=== PATIENT | male | born 1960 | race Caucasian/White ===

== ENCOUNTER → 2021-02-01 09:43 | Outpatient (CLI) | payer BC, SELFPAY ==
--- NOTE | ~2021-02-01 | XR_ITS ---
EXAMINATION: XR sacroiliac joints min 3V, XR lumbar spine 2-3V EXAM DATE: 02/01/2021 10:12 INDICATION: lower lumbar pain/SI joint area pain/sciatic nerve . TECHNIQUE: Lumber spine frontal, lateral, lateral L5-S1 projections for interpretation. Sacroiliac f rontal, bilateral oblique projections. There is prior lumbar x-ray exam from 2010 for comparison. FINDINGS: There is moderate facet arthropathy at L4-5, otherwise mild lumbar facet arthropathy, with mild progression in this arthropathy compared to 2010. The vertebral bodies are aligned in the AP di mension. Vertebral body and disc heights are well-maintained. There are no acute fractures identified . Paraspinal soft tissue is unremarkable. Sacrum, sacroiliac joints, sacral arcuate lines are intact and symmetric. There are no bony erosions identified. There is mild to moderate symmetric bilateral hip primary osteoarthritis. IMPRESSION: 1. L4-5 moderate facet arthropathy, less at other levels. 2. Mild to moderate bilateral hip osteoarthritis. 3. Unremarkable sacrum. Reviewed, dictated and finalized at location A. IMPRESSION: 1. L4-5 moderate facet arthropathy, less at other levels. 2. Mild to moderate bilateral hip osteoarthritis. 3. Unremarkable sacrum.
== END ==
PROVIDERS: PCP Family Medicine; Visit Provider Physician Assistant
DX: M54.30 Sciatica, unspecified side (principal); M53.3 Sacrococcygeal disorders, not elsewhere classified; M54.5 Low back pain; M16.0 Bilateral primary osteoarthritis of hip
CPT/HCPCS: 72100; 72202

== ENCOUNTER → 2021-02-22 09:34 | Outpatient (CLI) | payer BC, SELFPAY ==
--- NOTE | ~2021-02-22 | XR_ITS ---
EXAMINATION: XR knee LT min 4V DATE: 02/22/2021 10:49 INDICATION: Left knee pain. TECHNIQUE: 4 views of left knee were obtained. COMPARISON: Left knee radiographs 07/31/2015 FINDINGS: Bone alignment is normal. No fracture. There is mild osteoarthritis of lateral and patellof emoral compartments characterized by tiny marginal osteophytes. No knee joint effusion. There is a 3 mm loose body in the intercondylar notch. IMPRESSION: 1. Mild left knee osteoarthritis. 2. Small loose body in left knee joint. Reviewed, dictated and finalized at location A.
--- NOTE | ~2021-02-22 | MR_ITS ---
EXAMINATION: MR lumbar spine wo con EXAM DATE: 02/22/2021 10:08 INDICATION: Low back pain, bilateral leg pain. Lumbar radiculopathy. TECHNIQUE: Multi-sequential, multiplanar MR images of the lumbar spine were obtained without contrast . Sagittal T1, T2, T2 fat saturation images. Axial T2 weighted images. Correlation is made to lumba r x-ray 02/01/2021. FINDINGS: The conus medullaris terminates at the T12-L1 level and has normal signal intensity and mor phology. The vertebral bodies are aligned in the AP dimension. Vertebral body and disc heights are w ell-maintained. There are no suspicious marrow signal abnormalities. Paraspinal soft tissue is unrema rkable. Level by level evaluation: T12-L1: Disc does not extend beyond the endplate margin. Facet arthropathy: None. Neural foraminal stenosis: No stenosis. Central canal stenosis: No stenosis. L1-L2: Disc does not extend beyond the endplate margin. Facet arthropathy: None. Neural foraminal stenosis: No stenosis. Central canal stenosis: No stenosis. L2-L3: Disc does not extend beyond the endplate margin. Facet arthropathy: Mild. Neural foraminal stenosis: No stenosis. Central canal stenosis: No stenosis. L3-L4: There is a minimal diffuse disc bulge. Facet arthropathy: Mild. Neural foraminal stenosis: No stenosis. Central canal stenosis: No stenosis. L4-L5: There is a mild diffuse disc bulge. Facet arthropathy: Moderate left, mild to moderate right. Mild ligamentum flavum enlargement. Neural foraminal stenosis: Mild bilateral. Central canal stenosis: Mild. L5-S1: There is a minimal diffuse disc bulge. Facet arthropathy: Moderate to severe left, mild right. Neural foraminal stenosis: No stenosis. Central canal stenosis: No stenosis. IMPRESSION: 1. Lower lumbar predominant facet arthropathy. 2. No significant stenosis. Reviewed, dictated and finalized at location A.
--- NOTE | ~2021-02-22 | XR_ITS ---
EXAMINATION: XR knee RT min 4V DATE: 02/22/2021 10:49 INDICATION: Right knee pain. TECHNIQUE: 4 views of right knee were obtained. COMPARISON: None. FINDINGS: Bone alignment is normal. No fracture. There is mild tricompartmental osteoarthritis charac terized by tiny marginal osteophytes. No knee joint effusion. IMPRESSION: 1. Mild right knee osteoarthritis. Reviewed, dictated and finalized at location A.
== END ==
PROVIDERS: PCP Family Medicine; Visit Provider Nurse Practitioner Adult Health
DX: M54.16 Radiculopathy, lumbar region (principal); M17.0 Bilateral primary osteoarthritis of knee; M23.42 Loose body in knee, left knee
CPT/HCPCS: 72148; 73564

== ENCOUNTER → 2021-07-24 09:43 | Outpatient (CLI) | payer BC, SELFPAY ==
--- NOTE | ~2021-07-24 | XR_ITS ---
XR hand RT 2V DATE: 07/24/2021 10:12 INDICATION: Right hand pain TECHNIQUE: AP and lateral views COMPARISON: None FINDINGS: There is polyarticular osteoarthritis, involving first carpometacarpal and the metacarpopha langeal joints, especially the first and second metacarpophalangeal joints, as well as some interphal angeal joints. No fracture, dislocation, periosteal reaction or bone destruction, erosive change or chondrocalcinosi s is evident. IMPRESSION: Polyarticular osteoarthritis Reviewed, dictated and finalized at location B.
== END ==
PROVIDERS: PCP Family Medicine; Visit Provider Physician Assistant
DX: M19.041 Primary osteoarthritis, right hand (principal)
CPT/HCPCS: 73120

== ENCOUNTER → 2021-11-07 09:44 | Outpatient (CLI) | payer BC, SELFPAY ==
--- NOTE | ~2021-11-07 | XR_ITS ---
EXAMINATION: XR hand LT min 3V EXAM DATE: 11/07/2021 09:59 INDICATION: Hand pain left, trigger middle finger of left hand . TECHNIQUE: Left hand frontal, lateral and oblique projections obtained and reviewed. There is no memo or study for comparison. FINDINGS: Left metacarpal bones are unremarkable. There is mild polyarticular interphalangeal, dista l interphalangeal, 1st MCP primary osteoarthritis. There are no bony erosions identified. There are no acute fractures or dislocations identified. There is no subcutaneous gas. The soft tissue is unr emarkable. There are no radiopaque foreign bodies. IMPRESSION: Left hand polyarticular osteoarthritis. Reviewed, dictated and finalized at location A. E PILOT
== END ==
PROVIDERS: PCP Physician Assistant; Visit Provider Physician Assistant
DX: M65.332 Trigger finger, left middle finger (principal); M79.642 Pain in left hand; M18.12 Unilateral primary osteoarthritis of first carpometacarpal joint, left hand; M19.042 Primary osteoarthritis, left hand
CPT/HCPCS: 73130

== ENCOUNTER 2022-01-23 10:37 | Outpatient (CLI) | payer BC, SELFPAY | END 2022-01-23 10:38 | disposition home or self-care (01) | LOC: ANHAUDIO 10:39 | PROVIDERS: PCP Physician Assistant; Visit Provider Family Medicine | DX: H91.90 Unspecified hearing loss, unspecified ear (principal) | CPT/HCPCS: 92557; 92567 ==

== ENCOUNTER → 2022-02-07 12:40 | Outpatient (CLI) | payer BC, SELFPAY ==
--- NOTE | ~2022-02-07 | CT_ITS ---
EXAMINATION: CT abdomen pelvis wo con DATE: 02/07/2022 13:00 INDICATION: Upper abdominal pain TECHNIQUE: Computed tomography (CT) of the abdomen and pelvis was performed without intravenous contr ast. The dose-length product (DLP) was 880.01 mGy-cm. Automated exposure control and iterative recons truction technique were employed. COMPARISON: 01/12/2013 FINDINGS: Minimal dependent atelectasis is present in the lung bases. The heart size is normal. The l iver is diffusely low in attenuation when compared with the spleen, consistent with hepatic steatosis . The spleen, pancreas, and adrenal glands are normal. A stone is present in the nondistended gallbla dder. The kidneys are unremarkable. No pathologically enlarged abdominal or pelvic lymph nodes are id entified. There is no free intraperitoneal gas or evidence of bowel obstruction. Prostatic calcificat ions are noted. There is a small epigastric hernia with a 6 mm neck to the right of midline which miguel ears to contain a small amount of fat or omentum. There is a fat-containing umbilical hernia. There i s mild lumbar spondylosis. IMPRESSION: 1. Small epigastric hernia with a 6 mm neck to the right of midline containing a small amount of fat or omentum. 2. Diffuse hepatic steatosis. 3. Small fat-containing umbilical hernia. Reviewed, dictated and finalized at location A.
== END ==
PROVIDERS: PCP Family Medicine; Visit Provider Family Medicine
DX: R10.11 Right upper quadrant pain (principal); K76.0 Fatty (change of) liver, not elsewhere classified; K42.9 Umbilical hernia without obstruction or gangrene
CPT/HCPCS: 74176

== ENCOUNTER 2022-04-06 12:00 | Outpatient (RCR) | payer BC, SELFPAY | END 2022-04-06 23:59 | disposition home or self-care (01) | LOC: ANHAUDIO 12:00 | PROVIDERS: Visit Provider Family Medicine | DX: Z46.1 Encounter for fitting and adjustment of hearing aid (principal) | CPT/HCPCS: 99199; V5261 ==

== ENCOUNTER 2022-05-21 08:53 | Outpatient (CLI) | payer BC, SELFPAY ==
--- NOTE | 2022-05-21 | EST_ITS ---
Patient Info Name: Alan Gavin Age: 61 years : 1960 Gender: Male Ht: 67 in Wt: 204 lbs BSA: 2.12 m2 HR: 85 bpm BP: 123 / 78 mmHg Heart Rhythm: Sinus Rhythm Exam Date: 05/21/2022 10:14 AM Exam Location: [facility] Patient Status: Outpatient Admit Date: 05/21/2022 Staff Ordering Physician: AllanWild M.D. Director Of Leadership Development: Chery Schneider RDCS Attending Provider: MatiasWild M.D. Exercise Technologist: Lesley Flores RDCS Exercise Physician: Jensen Garay MD Exam Type: CA dobutamine stress echo Study Info Indications - HASSAN Dobutamine stress echocardiogram is performed. Summary 1. Negative stress echocardiogram for ischemia by wall motion analysis. 2. Negative dobutamine stress test for ischemic ST changes by ECG criteria. 3. Blood pressure response at peak dobutamine infusion did drop and then rise significantly. ? Error/artifact at the time. 4. No dobutamine induced chest pain. Stress Echo Findings Left Ventricle Normal left venticular systolic function with no regional wall motion abnormalities noted at rest. No regional wall motion abnormalities noted at rest. No regional wall motion abnormalities noted post stress. Overall global left ventricular systolic function Improved post stress. Normal augmentation of all wall segments without evidence of ischemia with stress. Left ventricular end systolic volume decreases post stress. Right Ventricle Right ventricular systolic function is normal. Right ventricular chamber dimension is normal. Left Atria Left atrial chamber dimension is mildly enlarged. Right Atria Right atrial chamber dimension is normal. Protocol: Doubutamine Stress ECG Details Stage: REST Duration (min): 5 min : 50 sec Orta: --- Speed (mph): 0.0 Grade (%): 0 HR (bpm): 73 SBP (mmHg): 123 DBP (mmHg): 78 METS: --- Stage: REST Duration (min): 6 min : 8 sec Orta: --- Speed (mph): 0.0 Grade (%): 0 HR (bpm): 77 SBP (mmHg): 123 DBP (mmHg): 78 METS: --- Stage: REST Duration (min): 47 min : 14 sec Orta: --- Speed (mph): 0.0 Grade (%): 0 HR (bpm): 85 SBP (mmHg): 123 DBP (mmHg): 78 METS: --- Stage: STAGE 1 Duration (min): 1 min : 0 sec Orta: --- Speed (mph): 0.0 Grade (%): 0 HR (bpm): 82 SBP (mmHg): 123 DBP (mmHg): 78 METS: --- Stage: STAGE 1 Duration (min): 2 min : 0 sec Orta: --- Speed (mph): 0.0 Grade (%): 0 HR (bpm): 87 SBP (mmHg): 111 DBP (mmHg): 64 METS: --- Stage: STAGE 1 Duration (min): 3 min : 0 sec Orta: --- Speed (mph): 0.0 Grade (%): 0 HR (bpm): 82 SBP (mmHg): 128 DBP (mmHg): 66 METS: --- Stage: STAGE 2 Duration (min): 1 min : 0 sec Orta: --- Speed (mph): 0.0 Grade (%): 0 HR (bpm): 94 SBP (mmHg): 128 DBP (mmHg): 66 METS: --- Stage: STAGE 2 Duration (min): 2 min : 0 sec Orta: --- Speed (mph): 0.0 Grade (%): 0 HR (bpm): 95 SBP (mmHg): 152 DBP (mmHg): 60 METS: ---
== END 2022-05-21 08:54 | disposition home or self-care (01) ==
PROVIDERS: PCP Family Medicine; Visit Provider Family Medicine
DX: R06.00 Dyspnea, unspecified (principal)
CPT/HCPCS: 93351; J0461; J1250

== ENCOUNTER 2022-10-02 09:52 | Outpatient (CLI) | payer BC, SELFPAY ==
[2022-10-02 11:16] LABS: Basophils Absolute Auto 0.1 K/mm3 (0.0-0.1); Basophils Percent Auto 0.7 % (0.2-1.2); Eosinophils Absolute Auto 0.3 K/mm3 (0-0.3); Eosinophils Percent Auto 3.9 % (0-4.4); Hematocrit 42.7 % (42.0-52.0); Hemoglobin 14.5 g/dL (14.0-18.0); Immature Granulocyte Absolute 0.02 K/mm3 (0.00-0.031); Immature Granulocyte Percent A 0.3 % (0-0.5); Lymphocytes Absolute Auto 2.44 K/mm3 (0.9-3.2); Lymphocytes Percent Auto 34.9 % (18.3-44.2); Mean Corpuscular Hemoglobin 28.8 pg (26-34); Mean Corpuscular Volume 84.7 fl (80-100); Mean Platelet Volume 9.6 fl (7.4-10.4); Monocytes Absolute Auto 0.4 K/mm3 (0.1-0.6); Monocytes Percent Auto 6.1 % (2.6-8.5); Neutrophils Absolute Auto 3.8 K/mm3 (1.3-6.7); Neutrophils Percent Auto 54.1 % (45.5-73.1); Platelet Count Result 212 k/mm3 (150-375); Red Blood Count 5.04 M/mm3 (4.6-6.20); Red Cell Distribution Width 12.4 % (11.5-14.5)
[2022-10-02 11:25] LABS: Urine Cotinine NEGATIVE
[2022-10-02 11:40] LABS: Hemoglobin A1C 5.8 % (<5.7)
[2022-10-02 16:55] LABS: Albumin Level 4.5 g/dL (3.5-5.1)
[2022-10-02 16:58] LABS: Anion Gap 9 mmol/L (8-16); Blood Urea Nitrogen 19 mg/dL (9-20); Calcium 9.3 mg/dL (8.4-10.2); Carbon Dioxide 26 mmol/L (22-30); Chloride 102 mmol/L (98-107); Estimated Glomerular Filt Rate > 60; Glucose 103 mg/dL (65-110); Sodium 137 mmol/L (137-145)
== END 2022-10-02 09:53 | disposition home or self-care (01) ==
LOC: ANHSURGERY 09:53
PROVIDERS: Anesthesiology; PCP Family Medicine; Visit Provider Orthopaedic Surgery
DX: M16.11 Unilateral primary osteoarthritis, right hip (principal); Z79.899 Other long term (current) drug therapy
CPT/HCPCS: 80048; 80307; 82040; 83036; 85025; 86850; 86900; 86901; 87081

== ENCOUNTER 2022-10-16 00:51 | Day surgery (SDC) | payer BC, SELFPAY ==
--- NOTE | 2022-10-02 09:46 | PC.NURSE ---
Addendum entered by Brittanie Hadley RN 10/02/22 10:40: PT AWARE HE CAN HAVE 20 0Z CLEAR LIQUIDS UP UNTIL 0900 AM Original Note: PRE-OP INSTRUCTIONS, PLEASE READ CAREFULLY Report to the Outpatient Waiting Room, entrance under the green pavilion located off [facility], at time _1000_ on date _10/15/22_. Planned Procedure Time: _1200_. PACK A SMALL OVERNIGHT BAG AND LEAVE IN THE CAR Time changes happen often and if your time is changed the preop area will call you the afternoon before. - You and your visitor will be asked to self-screen and do not enter if you have any COVID symptoms. - Only one visitor is requested with a max of two and NO children visitors are allowed at this time. - The patient visitor may be requested to leave or wait in car when not with patient due to distancing restrictions. - A mask is optional within the hospital. -VISITING HOURS 8AM-8PM Patients may have clear liquids (water, carbonated beverages, clear teas, apple juice) until 3 hours prior to surgery (0800 AM) with a maximum of 20 ounces. - No food from midnight until time of surgery Take the following medications with a SIP of water the morning of surgery: _GABAPENTIN, PAIN PILL, INHALER, NASAL SPRAY IF NEEDED_ Medications to discontinue __MELOXICAM & ASPIRIN PER DR. FLORES'S INSTRUCTIONS___, Date to take last dose Please no deodorant, or body powder the day of surgery. No jewelry (including any body piercings) or valuables the day of surgery, leave them at home. Please take a shower or bath the night before, or the morning of, surgery with an antibacterial soap. Wear comfortable, loose fitting clothing. - Jewelry must be removed prior to entering the operating room. Rings and piercings that are not removed may be cut off. - The hospital will not accept responsibility for valuables. - Please leave all valuables, including medications, at home the day of surgery. If you are going home after surgery, a licensed batch mixing truck driver must drive you home. - NO public transportation without another adult if you receive anesthesia. - We recommend that an adult stay with you for 24 hours following discharge. - We also recommend that you do not drive, make important decision, drink alcoholic beverages, or take any drugs that were not prescribed by your health care provider for at least 24 hours after your discharge time. Follow any additional instructions given to you from your surgeon. If you or anyone in your household have experienced Covid symptoms in the past week, please notify your surgeon or the nurse liaison at the phone number below for possible testing. Instructions given to _PATIENT_and asked if any additional questions and then verbalized understanding. Patient advised to call surgeon office or pre surgery nurse liaison [phone] if any additional questions.
[2022-10-02 10:19] VITALS: BP 146/90; PULSE 78; RESP 20; TEMP 36.9; O2SAT 98; BMI 33.7
--- NOTE | 2022-10-12 14:45 | HP_ITS ---
This report was recreated on January 04, 2023. Original report was signed by Bryant Guerin on 10/12/22 @ 14:51 and co-signed by Dr. Jose Luis Guallpa on 10/16/22 at 14:11. H&P: HPI History of Present Illness Date/Time: 10/12/22 14:41 Chief Complaint: The patient is a 62-year-old male presents with a chronic ongoing history of right hip pain. He has pain localized to the groin radiates into the thigh worse with activities and relieved by rest. He notes limitation of motion aching pain with ambulation he has startup pain rest pain and night pain. He cannot stand or walk for long periods and despite conservative measures including therapy oral prednisone and activity modification his symptoms continue. X-rays this time show advanced primary osteoarthritis in the right hip joint. The patient has discussed further treatment options in detail with Dr. Guallpa he would now like to proceed with a right total hip arthroplasty. Review of Systems Review of Systems: Ten point review of systems otherwise negative [facility] Past Medical History Medical History Allergic sinusitis Arthritis Back pain Chronic pain syndrome COPD (chronic obstructive pulmonary disease) Diabetes type 2, controlled Fibromyalgia Gastric ulcer GERD (gastroesophageal reflux disease) Hernia of abdominal wall History of angina IBS (irritable bowel syndrome) Peripheral neuropathy Pneumonia Shingles Surgical History Surgical History Hx of shoulder surgery lt shoulder Family History Family History Father Family history of Parkinson's disease Melanoma Nasal polyps Hypertension Hypercholesteremia Mother Osteoporosis Hypertension Hypercholesteremia Acute myocardial infarction Heart disease Other Lung cancer maternal uncle Diabetes mellitus type I, maternal uncle Stomach cancer paternal uncle Brain cancer paternal uncle Grandparent No problems noted. 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 Gender identity (if verbalized by the patient): Male Sexual Orientation (if Verbalized by the Patient): Straight or Heterosexual Spiritual care concerns: No Meds Home Medications and Allergies Home Medications Medication Instructions Recorded Confirmed Type fenofibrate micronized 134 mg 134 mg PO QPM #90 caps 01/26/22 10/02/22 Rx capsule albuterol 90 mcg/actuation aerosol 90 mcg inhalation Q6H PRN Wheezing 10/02/22 10/02/22 History inhaler aspirin 81 mg tablet,delayed 81 mg PO DAILY 10/02/22 10/02/22 History release escitalopram oxalate 20 mg tablet 20 mg HS 10/02/22 10/02/22 History esomeprazole magnesium 40 mg 40 mg BID 10/02/22 10/02/22 History capsule,delayed release fluticasone propionate 50 1 spray intranasal DAILY PRN 10/02/22 10/02/22 History mcg/actuation nasal Congestion spray,suspension gabapentin 100 mg capsule 100 mg BID 10/02/22 10/02/22 History hydrocodone 10 mg-acetamino
[2022-10-16] VITALS (26 sets, daily range): BP systolic 124–173; BP diastolic 74–111; PULSE 59–107; RESP 10–25; TEMP 36.6–37.1; O2SAT 93–99; BMI 32.6
--- NOTE | ~2022-10-16 | XR_ITS ---
EXAMINATION: XR surgery orthopedic DATE: 10/16/2022 15:48 INDICATION: Intraoperative evaluation during right total hip arthroplasty TECHNIQUE: 2 frontal views of the right hip was obtained. COMPARISON: None. FINDINGS: Intraoperative images during a right total hip arthroplasty demonstrate placement of an acetabular co mponent and a temporary femoral broach which are in near-anatomic alignment. Subsequent image demonst rates replacement of a femoral broach with a noncemented femoral component. Alignment remains essenti ally anatomic. Portions of the pelvis are obscured by overlying surgical instrumentation. No fracture s in the visualized bones. IMPRESSION: 1. Expected appearance during right total hip arthroplasty. Reviewed, dictated and finalized at location L. ESS AND WELLNESS DIRECTOR
[2022-10-16] MEDS: ACETAMINOPHEN 500 MG TABLET 1000 MG PO (12:37)
--- NOTE | 2022-10-16 12:46 | WPDANESEPPF ---
Anes - Initial Pre Proc Eval Procedure: Operation Date: 10/16/22 14:00 Proposed Procedures p Right Total Hip Arthroplasty - Jose Luis Guallpa MD Date/Time: 10/16/22 12:46 Surgeon: Jose Luis Guallpa MD Pre Op Diagnosis: OA right hip Patient Data Age: 62 Gender: M Height: 1.7 m Weight: 94.6 kg Allergies Allergy/AdvReac Type Severity Reaction Status Date / Time shrimp Allergy Severe Anaphylactic Verified 10/16/22 12:19 Shock ibuprofen AdvReac Mild Migraine Verified 10/16/22 12:19 Home Medications Medication Instructions Recorded Confirmed Type fenofibrate micronized 134 mg 134 mg PO QPM #90 caps 01/26/22 10/16/22 Rx capsule albuterol 90 mcg/actuation aerosol 90 mcg inhalation Q6H PRN Wheezing 10/02/22 10/16/22 History inhaler aspirin 81 mg tablet,delayed 81 mg PO DAILY 10/02/22 10/16/22 History release escitalopram oxalate 20 mg tablet 20 mg HS 10/02/22 10/16/22 History esomeprazole magnesium 40 mg 40 mg BID 10/02/22 10/16/22 History capsule,delayed release fluticasone propionate 50 1 spray intranasal DAILY PRN 10/02/22 10/16/22 History mcg/actuation nasal Congestion spray,suspension gabapentin 100 mg capsule 100 mg BID 10/02/22 10/16/22 History hydrocodone 10 mg-acetaminophen 1 tablet Q8H PRN Pain 10/02/22 10/16/22 History 325 mg tablet losartan 50 mg-hydrochlorothiazide 1 tablet QAM 10/02/22 10/16/22 History 12.5 mg tablet meclizine 12.5 mg tablet 12.5 mg BID 10/02/22 10/16/22 History meloxicam 7.5 mg/5 mL oral 7.5 mg PO DAILY PRN Pain 10/02/22 10/16/22 History suspension trazodone 50 mg tablet 50 mg HS 10/02/22 10/16/22 History Patient hx anesthesia problems: none Family hx anesthesia problems: none Results Review: All pre-operative results and documents have been reviewed as part of the pre-operative evaluation. [facility] Past Medical History Medical History Allergic sinusitis Arthritis Back pain Chronic pain syndrome COPD (chronic obstructive pulmonary disease) Diabetes type 2, controlled Fibromyalgia Gastric ulcer GERD (gastroesophageal reflux disease) Hernia of abdominal wall History of angina IBS (irritable bowel syndrome) Peripheral neuropathy Pneumonia Shingles Surgical History Surgical History Hx of shoulder surgery lt shoulder Family History Family History Father Family history of Parkinson's disease Melanoma Nasal polyps Hypertension Hypercholesteremia Mother Osteoporosis Hypertension Hypercholesteremia Acute myocardial infarction Heart disease Other Lung cancer maternal uncle Diabetes mellitus type I, maternal uncle Stomach cancer paternal uncle Brain cancer paternal uncle Grandparent No problems noted. 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
[2022-10-16] MEDS: fentaNYL CITRATE INJ (*CRX) 100 MCG/2 ML VIAL 50 MCG IV PUSH (12:55)
[2022-10-16] MEDS: LACTATED RINGERS 1,000 ML 30 ML IV CONT ×3 (13:02→18:03)
[2022-10-16] MEDS: TRANEXAMIC ACID 1,000MG/ISO100 1,000 MG/100 ML BAG 200 MG IVPB (13:37)
--- NOTE | 2022-10-16 14:12 | WPDHPUPDATE1 ---
History and Physical Update Update Date/Time: 10/16/22 14:12 History and Physical has been reviewed, including an updated exam of the patient. There are NO changes in the patient's condition. Risks, benefits, and alternatives have been discussed and questions answered. Patient agrees to proceed with procedure.
[2022-10-16] MEDS: ceFAZolin 2 GM/D5W 50 ML 2 GM/50 ML BAG IVPB (14:16)
--- NOTE | 2022-10-16 15:44 | W.PM.PROC2 ---
Procedure Note - Detailed Date of Procedure 10/16/22 Pre-op Diagnosis OA right hip Post-op Diagnosis Same Procedure Performed [Right] total hip arthroplasty Surgeon Jose Luis Guallpa MD Metal Casket Maker Bryant Guerin Anesthesia General Description of Procedure Patient was brought to the operating room and anesthetic was administered. The patient was placed with the [side] up and steriley prepped and draped in the usual manner. Longitudinal incision was done, dissection carried down to the fascia. A Hardinge type approach was used and the femoral head was dislocated anteriorly. Femoral head was removed a finger breath above the lesser trochanter. The acetabulum was serially reamed to accept a [54] component. This was impacted into place and secured with 2 25mm screws. A high wall liner was placed. The femur was reamed and broached to accept a [13] component which was impacted into place. A plus [0] ball and neck were placed and the hip was put through full range of motion. The hip was noted to be stable. The wounds were then closed in a layer fashion using #5 ethibond, 2 vicryl, 2-0 vicryl and loyda. Patient left the operating room in satisfactory condition. Implants Biomet Estimated Blood Loss 600 Drains No Packing No Pathology None sent Complications No immediate complications Condition Stable Disposition PACU
--- NOTE | 2022-10-16 16:33 | P.OPB_ITS ---
Procedure Note - Brief Procedure Note - Brief Date of procedure: 10/16/22 Pre-op diagnosis: OA right hip Preop diagnosis severe primary osteoarthritis right hip Postop diagnosis severe primary osteoarthritis right hip status post right total hip arthroplasty. Procedure performed: Right total hip arthroplasty Description of procedure: Patient was taken the operating room on October 16, 2022. I entered the operat ing room at approximately 2:20 p.m.. Once anesthesia was induced I assisted with positioning of the patient in the lateral position in anticipation of the right total hip arthroplasty. Hip positioners and axillary roll were positioned in a normal fashion. I then assisted with sterile prep and drape of the patient Dr. Guallpa then entered the room. The procedure commenced, throughout the procedure I assisted with hemostasis with suction and Bovie, positioning of the leg and wound retraction and insertion of the total hip implants. Once Dr. Guallpa completed his portion of the procedure I closed the deep fascial layer after obtaining hemostasis irrigating and applying Surgicel powder, I used number 2 Vicryl followed by number 2 Quill type suture. I then irrigated again closing the superficial skin layer with a couple of number 1 Vicryls, 2-0 Vicryl 0 Quill type suture and loyda. I then applied a sterile dressing and removed the drapes placed the patient in a supine position assisted with transfer of the patient from the OR table to the stretcher to be transferred to recovery room. The patient was in stable condition. Total blood loss was approximately 500 cc. The patient was expected to stay overnight be discharged tomorrow if stable. I exited the room at 4:20 p.m. Surgeon: Surgeon-Jose Luis Guallpa MD 1st central supply assistant-Bryant Guerin PA-C
[2022-10-16] MEDS: HYDROmorphone HCL INJ (*CRX) 1 MG/ML SYR 0.5 MG IV PUSH ×5 (16:59→20:31)
[2022-10-16 18:01] LABS: Hematocrit 39.6 % (42.0-52.0); Hemoglobin 13.1 g/dL (14.0-18.0)
[2022-10-16] MEDS: MIDAZOLAM HCL (*CRX) 2 MG/2 ML VIAL 1 MG IV PUSH (18:26)
--- NOTE | 2022-10-16 21:29 | SUR.PHASEI ---
2014- Spoke with Marilu, hospitalist after she assessed pt in PACU. Marilu agrees that pt does not need IMU bed. Pt AOX3. Pt on 2L NC. Pain 6/10. Right hip dressing dry and intact. 2+ pedal pulse. pt can wiggle toes. Pt admitted to med surgery. Pt going to room 10 in pre op. Report given to JAMES Ferrari. Pt updated.
[2022-10-16] MEDS: SENNA/DOCUSATE SODIUM TABLET 2 TAB PO (22:29)
[2022-10-16] MEDS: ESCITALOPRAM OXALATE 10 MG TABLET 20 MG BY MOUTH (22:30)
[2022-10-16] MEDS: GABAPENTIN 100 MG CAPSULE BY MOUTH (22:30)
[2022-10-16] MEDS: KCL 20MEQ/0.9% SOD CHL 1,000 ML 125 ML IV CONT (22:30)
[2022-10-16] MEDS: PANTOPRAZOLE 40 MG TABLET PO (22:31)
[2022-10-16] MEDS: traZODone HCL 50 MG TABLET BY MOUTH (22:31)
[2022-10-16] MEDS: MECLIZINE HCL 12.5 MG TABLET BY MOUTH (22:31)
[2022-10-16] MEDS: RIVAROXABAN 10 MG TABLET PO (22:31)
[2022-10-16] MEDS: FENOFIBRATE NANOCRYSTALLIZED 145 MG TABLET PO (22:32)
[2022-10-16] MEDS: MORPHINE SULFATE (*CRX) 4 MG/ML INJ 3 MG IV PUSH (22:33)
[2022-10-16] MEDS: HYDROcodone/acetaminophen (*CRX) 10-325 MG TABLET 1 TAB PO (23:02)
[2022-10-16] MEDS: MELOXICAM 7.5 MG TABLET PO (23:02)
--- NOTE | 2022-10-17 00:01 | PM.IMCN ---
Assessment and Plan Assessment and plan (1) Hypoxia: Code(s): R09.02 - Hypoxemia Status: Acute Assessment and Plan: -the patient was initially on a BiPAP. May be related to surgery or anesthesia or pain medication. The patient is currently on oxygen per nasal cannula and did not require being admitted into IMU. -he is now awake and talkative. (2) S/P total hip arthroplasty: Code(s): Z96.649 - Presence of unspecified artificial hip joint Status: Acute Assessment and Plan: Postop care per Dr. Guallpa DVT prophylaxis is per Dr. Guallpa the patient has SCDs and Efrain's. Xarelto was started PT and OT per Dr. Guallpa (3) Chronic pain syndrome: Code(s): G89.4 - Chronic pain syndrome Status: Acute Assessment and Plan: The patient is on gabapentin and that was resumed. -continue with Lexapro (4) GERD (gastroesophageal reflux disease): Code(s): K21.9 - Gastro-esophageal reflux disease without esophagitis Status: Acute Assessment and Plan: -continue with pantoprazole (5) HTN (hypertension): Code(s): I10 - Essential (primary) hypertension Status: Acute Assessment and Plan: -his losartan was resumed -hydrochlorothiazide was renewed (6) Diabetes type 2, controlled: Code(s): E11.9 - Type 2 diabetes mellitus without complications Status: Acute Assessment and Plan: -the patient stated that he lost weight and has eaten better and he is no longer on any medication. However did start him on Accu-Cheks AC and HS and will check his A1c and he is also on the hypoglycemic protocol. HPI Data of Consult Consult date: 10/17/22 Requesting Physician: Jose Luis Guallpa MD Primary Care Provider: Wild Lemus, Vaughn Consult Narrative Narrative: Alan Gavin is a 62 year old male who has a history of chronic ongoing history of right hip pain. The patient does have chronic pain syndrome. The patient stated that his right growing pain was worse with activity. Patient had x-rays that showed advanced primary osteoarthritis in the right hip. The patient has tried conservative measures including therapy, oral prednisone and activity modification without resolution of discomfort. Dr. Guallpa performed a right total hip arthroplasty today. He had estimated blood loss of 600 mL. Please see operative note. The patient was given several different pain medications in PACU and had hypoxia. The patient initially was placed on a BiPAP machine. Hospitalist was consulted. I went to evaluate the patient and he was on oxygen at 2-3 L. initially we had planned for admission into IMU. However the patient woke up more and appear to be doing much better. He was left in PACU on oxygen. Patient's H&H today was 13.1 and 39.6. The hospitalist has been consulted for dyspnea. Review of Systems Review of Systems: See HPI All systems reviewed & are unremarkable except as noted in HPI and below Constitutional: Constitutional: Reports as per HPI and Reports no additional constitutional complaints Eyes: Eyes: Reports as per HPI and Reports no additional eye complaints ENT: Reports system reviewed and no additional complaints, except as documented and Reports Normal hearing present Cardiovascular: Cardiovascular: Reports no additional cardiovascular complaints Respiratory: Respiratory: Reports no additional respiratory complaints and Reports no additional respiratory complaints Gastrointestinal: Gastrointestinal: Reports as per HPI and Reports no additional gastrointestinal complaints Musculoskeletal: Musculoskeletal: Reports no additional musculoskeletal complaints Integumentary/Breasts: Skin/Breast: Reports system reviewed and no additional complaints, except as docu and Reports as per HPI Neurologic: Reports system reviewed and no additional complaints, except as documented, Reports as per HPI and Reports Normal hearing present Psychiatric
[2022-10-17] MEDS: HYDROmorphone HCL INJ (*CRX) 1 MG/ML SYR IV PUSH ×2 (01:38→05:33)
[2022-10-17] MEDS: HYDROcodone/acetaminophen (*CRX) 10-325 MG TABLET 1 TAB PO ×3 (03:08→15:39)
[2022-10-17 03:19] VITALS: BP 138/81; PULSE 80; RESP 16; TEMP 37; O2SAT 98
[2022-10-17 04:00] VITALS: O2SAT 97
--- NOTE | 2022-10-17 04:03 | PC.NURSE ---
0330:PT ADAMARIS LIQS. NO DOCUMENTED U/O IN PACU. PT HAS PERSISTENT URGE TO VOID THIS SHIFT; MADE ATTEMPTS X2 TO VOID SINCE ADMIT TO VB7-2; ONCE W/ ASSIST AT STANDING AT BEDSIDE W/ HELP OF 2 STAFF. NOW VOICE DISCOMFORT. BLADDER SCAN X3 GREATER THAN 650ML. 16FR MOREL CATH PLACED W/ 780ML OUTPUT. PT VERBALIZED RELIEF. CATH IN PLACE FOR RETENTION
[2022-10-17 06:00] VITALS: BP 121/69; PULSE 75; RESP 16; TEMP 36.8; O2SAT 98
--- NOTE | 2022-10-17 06:59 | PM.PNORT ---
Subjective Subjective Date/Time Seen: 10/17/22 06:59 S/P Right JONATHAN. Pain better. NVI. Has urinary retention now. Dressing intact Exam Narrative: NVI Objective Data Vital Signs Vital Signs: Vital Signs - 24 hr 10/16/22 11:56 10/16/22 16:43 10/16/22 16:55 Temperature 36.8 C 36.6 C Pulse Rate 80 87 71 Respiratory Rate 16 22 H 14 Blood Pressure 149/94 H 159/106 H 154/90 H Pulse Oximetry 97 94 94 Oxygen Delivery Room Air BiPAP BiPAP Oxygen Flow Rate 10/16/22 17:10 10/16/22 17:25 10/16/22 17:40 Temperature Pulse Rate 90 86 86 Respiratory Rate 14 12 12 Blood Pressure 161/92 H 163/91 H 157/92 H Pulse Oximetry 94 93 94 Oxygen Delivery BiPAP BiPAP BiPAP Oxygen Flow Rate 10/16/22 17:55 10/16/22 18:05 10/16/22 16:45 Temperature Pulse Rate 102 H 101 H 89 Respiratory Rate 20 16 24 H Blood Pressure 142/86 H 173/100 H Pulse Oximetry 97 97 94 Oxygen Delivery BiPAP BiPAP BiPAP Oxygen Flow Rate 10/16/22 18:20 10/16/22 18:35 10/16/22 18:50 Temperature Pulse Rate 104 H 101 H 85 Respiratory Rate 20 15 10 L Blood Pressure 152/82 H 144/97 H 138/92 H Pulse Oximetry 97 97 96 Oxygen Delivery BiPAP BiPAP BiPAP Oxygen Flow Rate 10/16/22 19:05 10/16/22 19:20 10/16/22 19:35 Temperature Pulse Rate 85 107 H 98 Respiratory Rate 10 L 25 H 20 Blood Pressure 124/87 166/111 H 158/111 H Pulse Oximetry 96 98 96 Oxygen Delivery BiPAP BiPAP Nasal Cannula Oxygen Flow Rate 2 10/16/22 19:50 10/16/22 20:05 10/16/22 20:20 Temperature Pulse Rate 105 H 97 92 Respiratory Rate 20 15 10 L Blood Pressure 152/100 H 150/91 H Pulse Oximetry 96 98 99 Oxygen Delivery Nasal Cannula Nasal Cannula Nasal Cannula Oxygen Flow Rate 2 2 2 10/16/22 20:35 10/16/22 20:50 10/16/22 21:05 Temperature Pulse Rate 92 105 H 98 Respiratory Rate 17 19 15 Blood Pressure 151/96 H 142/98 H 145/86 H Pulse Oximetry 97 96 98 Oxygen Delivery Nasal Cannula Nasal Cannula Nasal Cannula Oxygen Flow Rate 2 2 2 10/16/22 21:20 10/16/22 21:30 10/16/22 21:30 Temperature 37.1 C Pulse Rate 96 59 L Respiratory Rate 20 14 Blood Pressure 149/98 H 153/87 H Pulse Oximetry 98 97 96 Oxygen Delivery Nasal Cannula Nasal Cannula Oxygen Flow Rate 2 2 10/16/22 21:49 10/16/22 22:19 10/16/22 23:19 Temperature 37.1 C 37.0 C 36.7 C Pulse Rate 60 60 95 Respiratory Rate 14 14 16 Blood Pressure 154/74 H 152/74 H 150/82 H Pulse Oximetry 99 99 96 Oxygen Delivery Oxygen Flow Rate 10/17/22 03:19 10/17/22 04:00 10/17/22 06:00 Temperature 37.0 C 36.8 C Pulse Rate 80 75 Respiratory Rate 16 16 Blood Pressure 138/81 121/69 Pulse Oximetry 98 97 98 Oxygen Delivery Room Air Oxygen Flow Rate Intake/Output Intake/Output: Intake & Output 10/14/22 10/15/22 10/16/22 10/17/22 23:59 23:59 23:59 23:59 Intake Total 1999 2600 Output Total 650 Balance 1999 1950 Meds/Results Medications: Active Medications Generic Name Dose Route Start Last Admin Trade Name Freq PRN Reason Stop Dose Admin Hydrocodone Bitart/Acetaminophen 1 tab 10/17/22 01:15 10/17/22 03:08 Hydrocodone/Acetaminophen (*Crx) 10-325 Mg Tablet PO 1 tab Q4H PRN Administration Pain Rated 4-6 Albuterol 2 puff 10/16/22 21:34 Albuterol Sulfate (*Sp) Aerosol 1 Puff INHALATION Q6H PRN Wheezing Aspirin 81 mg 10/17/22 09:00 Aspirin 81 Mg Enteric Tablet PO DAILY ELVIS Dextrose 12.5 gm 10/17/22 00:05 Dextrose 50% 25 Gm/50 Ml Syringe IV PUSH PRN PRN Hypoglycemia Protocol Escitalopram Oxalate 20 mg 10/16/22 21:34 10/16/22 22:30 Escitalopram Oxalate 10 Mg Tablet BY MOUTH 20 mg HS ELVIS Administration Fenofibrate 145 mg 10/16/22 21:55 10/16/22 22:32 Fenofibrate Nanocrystallized 145 Mg Tablet PO 145 mg QPM ELVIS Administration Fluticasone Propionate 1 spray 10/16/22 21:34 Fluticasone Propionate 0.05% Na Spr 16 Gm Btl (*Bkc) NASAL DAILY PA
[2022-10-17 07:19] VITALS: BP 142/68; PULSE 78; RESP 14; TEMP 36.7; O2SAT 98
--- NOTE | 2022-10-17 07:23 | WPDANESPN ---
Anes - Prog Note Post-Op Date/Time: 10/17/22 07:23 Cardiovascular status: normal Respiratory status: normal Airway patency: baseline Mental status: baseline Post-Op hydration status: normal Vital Signs: Last Vital Signs Temp 36.8 C 10/17/22 06:00 Pulse 75 10/17/22 06:00 Resp 16 10/17/22 06:00 BP 121/69 10/17/22 06:00 Pulse Ox 98 10/17/22 06:00 O2 Del Method Room Air 10/17/22 04:00 O2 Flow Rate 2 10/16/22 21:30 Pain Score (VAS): 2 I/O: Intake & Output 10/16/22 10/16/22 10/17/22 15:59 23:59 07:59 Intake Total 50 1950 2600 Output Total 650 Balance 50 1950 1950 Laboratory Tests 10/16/22 17:51 10/16/22 17:51 Hgb 13.1 L Hct 39.6 L Post-procedural complaints: none Patient Feedback: Patient satisfied with anesthetic care.
[2022-10-17] MEDS: KCL 20MEQ/0.9% SOD CHL 1,000 ML 125 ML IV CONT (07:34)
[2022-10-17] MEDS: SENNA/DOCUSATE SODIUM TABLET 2 TAB PO (08:12)
[2022-10-17] MEDS: PANTOPRAZOLE 40 MG TABLET PO (08:12)
[2022-10-17] MEDS: GABAPENTIN 100 MG CAPSULE BY MOUTH (08:12)
[2022-10-17] MEDS: MECLIZINE HCL 12.5 MG TABLET BY MOUTH (08:12)
[2022-10-17] MEDS: hydroCHLOROthiazide 12.5 MG CAPSULE PO (08:12)
[2022-10-17 08:13] LABS: Glucose Point of Care 120 mg/dl (65-105)
[2022-10-17] MEDS: LOSARTAN POTASSIUM 50 MG TABLET PO (08:13)
[2022-10-17] MEDS: ASPIRIN 81 MG ENTERIC TABLET PO (08:13)
--- NOTE | 2022-10-17 09:19 | WPDURCON ---
Assessment and Plan Assessment and plan (1) Retention of urine: Code(s): R33.9 - Retention of urine, unspecified Status: Acute Assessment and Plan: I recommended a catheter for 7-10 days, starting Flomax and f/u for an outpatient voiding trial in the office. However, the patient refuses and wants a voiding trial now despite me explaining that he will likely fail and needs more time. He understands that without a red he may have acute renal failure and will need another red placed which raises his risk for a urinary tract infection which could complicate his recent hip replacement. Urology Consult Note HPI Date Seen: 10/17/22 Time Seen: 09:20 Requesting Physician: Jose Luis Guallpa MD Primary Care Provider: Wild Lemus, Vaughn Consult Narrative Reason for consult: Post Op Retention Narrative: Alan Gavin is a 62 year old male who is s/p Right Total Hip Replacement yesterday. He developed post op urinary retention and had a red placed. He denies hesitancy, straining or difficulty with urination normally. He states he has frequency but relates that to his lasix. He states he has had a CHERI for BPH but his prostate was not enlarged. He has never been treated for OAB or BPH. He wants his red out because it is painful. We discussed that he needs to keep his red in for 7-10 days and start Flomax then f/u as an outpatient for a voiding trial. However he refuses and says there is nothing wrong with his bladder or prostate, and he can urinate. Review of Systems Cardiovascular: Cardiovascular: Denies chest pain Respiratory: Respiratory: Reports no additional respiratory complaints Gastrointestinal: Gastrointestinal: Denies abdominal pain, Denies nausea and Denies vomiting Genitourinary: Genitourinary: Denies hematuria, Denies dysuria, Denies flank pain, Denies urinary frequency, Denies urinary hesitancy and Denies urinary urgency [facility] Past Medical History Medical History Allergic sinusitis Arthritis Back pain Chronic pain syndrome COPD (chronic obstructive pulmonary disease) Diabetes type 2, controlled Fibromyalgia Gastric ulcer GERD (gastroesophageal reflux disease) Hernia of abdominal wall History of angina IBS (irritable bowel syndrome) Peripheral neuropathy Pinworm infection Pneumonia Shingles Surgical History Surgical History Hx of shoulder surgery lt shoulder S/P total hip arthroplasty Right hip Family History Family History Father Family history of Parkinson's disease Melanoma Nasal polyps Hypertension Hypercholesteremia Mother Osteoporosis Hypertension Hypercholesteremia Acute myocardial infarction Heart disease Other Lung cancer maternal uncle Diabetes mellitus type I, maternal uncle Stomach cancer paternal uncle Brain cancer paternal uncle Grandparent No problems noted. Social History Social History Social History: The patient is and lives with his . He has 2 children. He is a former smoker. 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 The patient desires to have his is the durable power [employer] line back feeder for healthcare. Code status full code Smoking packs per day: 2 Smoking cigarettes per day: 40.0 Years smoked: 40 Smoking pack-years: 80.00 Smoking status: Former smoker Tobacco type: cigarettes Second hand tobacco smoke exposure: No Smoking end date: 10/28/11 Alcohol intake: current Drinks per week: 4 Substance use: never Substance use type: does not use Lack of Transportation: No Lack of Food: Never True Current Housing: I Have Housing Concerned About Future Housing: No Difficulty Paying Gas/Electric Bills: No Difficulty Payi
[2022-10-17 10:00] VITALS: BP 109/66; PULSE 93; RESP 22; TEMP 36.9; O2SAT 98
--- NOTE | 2022-10-17 11:14 | PM.IMPN ---
Progress Note: A&P Assessment and Plan (1) S/P total hip arthroplasty: Code(s): Z96.649 - Presence of unspecified artificial hip joint Status: Acute Assessment and Plan: underwent right total hip arthroplasty on 10/16/[address] Guallpa. patient tolerated procedure well. Management per Orthopedic surgery. Patient has been started on Xarelto for postoperative DVT prophylaxis. (2) Hypoxia: Code(s): R09.02 - Hypoxemia Status: Resolved Assessment and Plan: Patient required BiPAP in the immediate postoperative period. May have been related to anesthesia versus analgesics. With his history of COPD, he was at higher risk for requiring supplemental oxygen postoperatively. He has been weaned to room air and is maintaining adequate O2 saturations. No ongoing hypoxia (3) Retention of urine: Code(s): R33.9 - Retention of urine, unspecified Status: Acute Assessment and Plan: Patient developed postoperative urinary retention. Evangelista catheter was placed. Will proceed with voiding trial today per patient request. Appreciate urology consultation and recommendations. If patient unable to void will need Evangelista catheter replacement, initiation of tamsulosin, and outpatient urology follow-up in 7-10 days. (4) Chronic pain syndrome: Code(s): G89.4 - Chronic pain syndrome Status: Chronic Assessment and Plan: Continue home regimen. Discussed using daily MiraLax when taking narcotics (5) GERD (gastroesophageal reflux disease): Code(s): K21.9 - Gastro-esophageal reflux disease without esophagitis Status: Chronic Assessment and Plan: No acute issues. Continue PPI (6) HTN (hypertension): Code(s): I10 - Essential (primary) hypertension Status: Acute Assessment and Plan: blood pressure remaining stable. Continue losartan and hydrochlorothiazide (7) Diabetes type 2, controlled: Code(s): E11.9 - Type 2 diabetes mellitus without complications Status: Acute Assessment and Plan: A1c is 5.8. Patient has, off of hypoglycemic agents and is now diet controlled. Sliding scale insulin and hypoglycemic protocol implemented during admission Subjective Date/time seen: 10/17/22 11:14 Interval history: Date of service: 10/17/2022 Alan lopez is a 62-year-old male with a history of COPD, GERD, IBS, fibromyalgia, chronic pain syndrome, type 2 diabetes mellitus who is status post right total hip replacement on 12/20. he is being seen in consultation for medical management. He reports that he is doing well today. He is having increased right hip pain after recently participating with therapy. He states his pain is 10/10 but states it is more of a soreness than a pain. He endorses shortness of breath but overall improved from before. He states I am always short of breath And does not feel his symptoms are worse than his baseline. He denies chest pain. He has not had a bowel movement following surgery and denies passing flatus. He is tolerating his diet. He has a Evangelista catheter in place and wants to have this removed to proceed with voiding trial. States he was not able to urinate because he could not get privacy. He wants to attempt to urinate again and is aware that if he is not able to, he will need to return home with Evangelista catheter. Review of Systems Review of Systems: All systems reviewed & are unremarkable except as noted in HPI and below Exam Narrative: General: Well-nourished, well-appearing 62-year-old male, sitting up in a chair with right leg elevated on foot rest, comfortable, NARD Neuro: awake, alert and oriented x4, speech clear, no focal neuro deficits noted HEENMT: normocephalic, atraumatic, EOMI, sclerae anicteric Respiratory: clear to auscultation bilaterally, nonlabored breathing Cardio: regular rate, regular rhythm with S1-S2 Abdomen: nondistended, normoact
[2022-10-17] MEDS: TAMSULOSIN HCL 0.4 MG CAPSULE PO (11:38)
[2022-10-17 13:05] LABS: Basophils Percent Auto 0.3 % (0.2-1.2); Eosinophils Percent Auto 0.1 % (0-4.4); Hematocrit 30.2 % (42.0-52.0); Hemoglobin 10.3 g/dL (14.0-18.0); Immature Granulocyte Absolute 0.03 K/mm3 (0.00-0.031); Immature Granulocyte Percent A 0.3 % (0-0.5); Lymphocytes Absolute Auto 2.43 K/mm3 (0.9-3.2); Lymphocytes Percent Auto 26.6 % (18.3-44.2); Mean Corpuscular HGB Conc 34.1 g/dl (32-36); Mean Corpuscular Hemoglobin 28.7 pg (26-34); Mean Corpuscular Volume 84.1 fl (80-100); Mean Platelet Volume 9.7 fl (7.4-10.4); Monocytes Absolute Auto 0.9 K/mm3 (0.1-0.6); Monocytes Percent Auto 9.4 % (2.6-8.5); Neutrophils Absolute Auto 5.8 K/mm3 (1.3-6.7); Neutrophils Percent Auto 63.3 % (45.5-73.1); Platelet Count Result 183 k/mm3 (150-375); Red Blood Count 3.59 M/mm3 (4.6-6.20); Red Cell Distribution Width 12.7 % (11.5-14.5); White Blood Count 9.2 K/mm3 (4.5-10.0)
--- NOTE | 2022-10-17 13:05 | PC.NURSE ---
Alma Rosa, aware that patient had 212mL post void via bladder scanner.
[2022-10-17 13:17] LABS: Anion Gap 7 mmol/L (8-16); Blood Urea Nitrogen 13 mg/dL (9-20); Calcium 8.6 mg/dL (8.4-10.2); Carbon Dioxide 27 mmol/L (22-30); Chloride 99 mmol/L (98-107); Estimated CRCL calculation 89 ml/min; Estimated Glomerular Filt Rate > 60; Glucose 96 mg/dL (65-110); Potassium 3.3 mmol/L (3.4-5.0); Sodium 133 mmol/L (137-145)
[2022-10-17 13:22] LABS: Hemoglobin A1C 5.6 % (<5.7)
[2022-10-17 13:26] LABS: Glucose Point of Care 95 mg/dl (65-105)
--- NOTE | 2022-10-18 11:24 | P.DS_ITS ---
DS: Admitting Diagnosis Discharge Date October 17, 2022 Admitting Diagnosis severe primary osteoarthritis right hip discharge diagnosis severe primary osteoarthritis right hip status post total hip arthroplasty. DS: Summary Hospital Course Hospital Course: Patient underwent right total hip arthroplasty performed by Dr. Guallpa on 2021 was admitted overnight for postop pain control and observation. Postop day 1 he was having some pain control issues this was addressed and patient was able to be discharged home later in the day. Vital signs are stable he is afebrile neurovascular is intact wound was clean and dry calves are benign patient was discharged home in good condition. Time Spent with Patient Time attestation: Total time spent providing and/or coordinating discharge services: Exam Narrative: Vital signs stable afebrile alert oriented x3. Wound clean and dry neurovascular is intact cast benign tolerated therapy well up ambulating with a walker independently. No postop complications noted. Discharge Plan Discharge Patient Disposition: Home, Self-Care Discharge Instructions: YOUR SURGERY HAS BEEN CANCELLED FOR TODAY. YOU ARE RESCHEDULED FOR 10/16/22 @ 2PM. PLEASE ARRIVE TO THE SURGERY CENTER YOU DID TODAY AT 12 NOON TOMORROW. YOUR INSTRUCTIONS WILL BE UNCHANGED. IN THE MORNING, TAKE YOUR GABAPENTIN, INHALER NEEDED, PAIN MEDS NEEDED, AND NASAL SPRAY NEEDED. CONTINUE TO HOLD YOUR MOBIC AND ASPIRIN. TAKE YOUR FENOFIBRATE, MECLIZINE, TRAZADONE TODAY YOU NORMALLY WOULD. Stand Alone Forms: Avoid NSAIDs Discharge Medications: No Action trazodone 50 mg tablet 50 mg HS meclizine 12.5 mg tablet 12.5 mg BID hydrocodone-acetaminophen 10-325 mg tablet 1 tablet Q8H PRN (Reason: Pain) aspirin 81 mg Tablet,Delayed Release (Dr/Ec) 81 mg PO DAILY esomeprazole magnesium 40 mg capsule,delayed release(DR/EC) 40 mg BID gabapentin 100 mg capsule 100 mg BID albuterol 90 mcg/actuation Aerosol 90 mcg INHALATION Q6H PRN (Reason: Wheezing) losartan-hydrochlorothiazide 50-12.5 mg tablet 1 tablet QAM escitalopram oxalate 20 mg tablet 20 mg HS meloxicam 7.5 mg/5 mL Suspension 7.5 mg PO DAILY PRN (Reason: Pain) fluticasone propionate 50 mcg/actuation spray,suspension 1 spray intranasal DAILY PRN (Reason: Congestion) Rx Instructions: administer into each nostril hydrocodone-acetaminophen 7.5-325 mg tablet 1 tablet PO Q4H PRN (Reason: pain) Qty: 40 0RF Xarelto 10 mg tablet 10 mg PO DAILY Qty: 30 0RF Rx Instructions: for 35 days tamsulosin 0.4 mg capsule 0.4 mg PO HS Qty: 30 6RF fenofibrate micronized 134 mg capsule 134 mg PO QPM Qty: 90 1RF
== END 2022-10-17 17:30 | disposition home or self-care (01) ==
LOC: ANHSURGERY 11:42 → ANHSUROVER 10-17 10:49
PROVIDERS: Nurse Practitioner; PCP Family Medicine; Visit Provider Orthopaedic Surgery
PROC: (CPT 27130; principal; 2022-10-15 12:00)
DX: M16.11 Unilateral primary osteoarthritis, right hip (principal); R09.02 Hypoxemia; R33.9 Retention of urine, unspecified; G89.18 Other acute postprocedural pain; I10 Essential (primary) hypertension; J44.9 Chronic obstructive pulmonary disease, unspecified; M79.7 Fibromyalgia; E11.42 Type 2 diabetes mellitus with diabetic polyneuropathy; G89.4 Chronic pain syndrome; K21.9 Gastro-esophageal reflux disease without esophagitis; Z79.891 Long term (current) use of opiate analgesic; Z87.891 Personal history of nicotine dependence; E66.9 Obesity, unspecified; Z68.32 Body mass index [BMI] 32.0-32.9, adult; Z79.82 Long term (current) use of aspirin; Z79.51 Long term (current) use of inhaled steroids
CPT/HCPCS: 27130; 36415; 80048; 82948; 83036; 85014; 85018; 85025; 97110; 97116; 97161; 97165; 97530; 97535; 99199; 99211; A9270; C1776; C9290; G0463; J0330; J0690; J1100; J1170; J2250; J2270; J2370; J2405; J2704; J2710; J3010; J3370; J3480; J7120

== ENCOUNTER → 2023-01-24 13:39 | Outpatient (CLI) | payer BC, SELFPAY ==
--- NOTE | ~2023-01-24 | US_ITS ---
Duplex Sonography of the right extremity: Indication: Pain Findings: Sagittal and transverse B-mode images as well as color-flow imaging were performed on the r ight femoral and popliteal veins. B-mode examination was done without and with compression in the tr ansverse plane. There is good visualization of the common femoral, proximal profunda femoral, superf icial femoral, greater saphenous, and popliteal veins. Normal flow was seen on color-flow imaging. N ormal compressibility was demonstrated. Posterior tibial and peroneal veins are also patent. Impression: No evidence of deep vein thrombosis involving the right lower extremity. Reviewed, dictated and finalized at location M. Impression: No evidence of deep vein thrombosis involving the right lower extremity.
== END ==
PROVIDERS: PCP Family Medicine; Visit Provider Family Medicine
DX: M79.651 Pain in right thigh (principal)
CPT/HCPCS: 93971

== ENCOUNTER → 2023-02-14 11:18 | Outpatient (CLI) | payer BC, SELFPAY ==
--- NOTE | ~2023-02-14 | CT_ITS ---
Noncontrast CT scan of the cervical spine Technique: Multiple contiguous axial [address] images of the cervical spine were obtained and rec onstructed in 2D sagittal and coronal planes on the acquisition scanner. Dose reduction technique was used on this scan by utilizing automated exposure control, adjustment of the mA and/or kV according to patient size. Clinical History: Radiculopathy Findings: No fractures or dislocations. The intervertebral disc spaces are preserved. No significan t disc bulge or herniation evident. No spinal canal stenosis evident. No definite neural foraminal na rrowing seen. No prevertebral soft tissue swelling. Impression: No significant abnormality of the cervical spine identified. Reviewed, dictated and finalized at location . Impression: No significant abnormality of the cervical spine identified.
== END ==
PROVIDERS: PCP Family Medicine; Visit Provider Anesthesiology Pain Medicine
DX: M54.12 Radiculopathy, cervical region (principal)
CPT/HCPCS: 72125

== ENCOUNTER 2023-08-28 14:30 | Outpatient (RCR) | payer BC, SELFPAY ==
--- NOTE | 2023-07-03 12:00 | OPREHPOC ---
Outpatient Therapy Plan of Care This is a Multidisciplinary Plan of Care that may contain components documented by all disciplines (PT, OT, and ST.) PT Problem 1 PT Problem #1 Knowledge Deficit PT Goal 1 Goal 1* indep with HEP PT Problem 2 PT Problem #2 Pain PT Goal 1 Goal 1* pt report pain at worst rating of 7/10 2* Oswestry self assessment functional score of 50 % limitation in activity 3* pt report sleeping 4 hours 4* pt able to state 3 things he can do to decrease his pain PT Problem 3 PT Problem #3 Impaired Strength PT Goal 1 Goal 1* pt perform 20 reps of mat strengthening exercises with good control 2* pt able to single leg stand on R x 5 seconds PT Problem 4 PT Problem #4 Impaired Flexibility PT Goal 1 Goal anterior hip/quad length with prone knee flexion 1* R 110' 2* L 120' hamstring length with supine SLR 3* R 40' 4* L 45' 5* supine R hip flexion 90' prone hip extension 6* R 0' 7* L 0'
--- NOTE | 2023-07-03 12:00 | PTOPEVAL1 ---
Assessment and note entered by Brina Gomez, PT Evaluation Information Assessment Status Evaluation Diagnosis R hip pain Onset Oct 2022 Subjective Information R THR Sep 2022; after hip surgery, more pain in back and quad muscle; Dr Guallpa has checked his hip, said it was OK with xray and that he has a huge replacement, with lots of metal no recent imaging for back; have had pain management for back- few months ago ACTIVITY: use cane PRN; retired; GOAL: be able to walk up/down stairs, take dog for walk; Reported Pain Level Pain Score Self Report Additional Pain Score Comments reports pain range of 10-20/10; hurts, muscle is quitting and going to fall; have history of back pain; saw back dr, they want to do shots, but do not want them; also have arthritis in knees; sleep about 3 hours /night (normal is 5 hours) increase pain: walking 20 min; easier with shopping and lean on cart; decrease pain: nothing helps pain; some help with copper compression sleeve over R knee take tylenol PRN--not really help; no prescription meds for pain, issues with his stomach and cannot take them; Assessment PT Clinical Summary Alan has the diagnosis of R hip pain. His medical history includes R THR Sep 2022, bilateral knee pain, L hip pain--also needs replacement, chronic back pain. And is under pain management care for LBP. Oswestry self assessment functional score of 62% limitation in activity level, with decreased sleeping and walking tolerances. With the evaluation he has poor standing and walking postures, decreased strength of trunk and legs, with decreased flexibility of hip extension, hamstring and quad tightness; spasms with palpation over R distal quad- medial and lateral aspects and ITB. Skilled PT services are indicated for modalities to decrease pain, therapeutic exercises to increase strength and flexibility of trunk and hips with education for
--- NOTE | 2023-07-03 13:31 | PCPTNOTE ---
During eval--pt orders are for eval and treatment of L shoulder pain He reported he was here for his R hip. Contacted dr office and spoke with nurse there--clarified and received verbal orders for eval and treatment of R hip and low back pain. Faxed request to office for signature for order.
--- NOTE | 2023-07-15 10:09 | PCPTNOTE ---
Patient called & cancelled scheduled appointment this date due to being sick.
--- NOTE | 2023-08-01 09:53 | OPREHPOC ---
Outpatient Therapy Plan of Care This is a Multidisciplinary Plan of Care that may contain components documented by all disciplines (PT, OT, and ST.) PT Problem 1 PT Problem #1 Knowledge Deficit PT Goal 1 Goal 1* indep with HEP Progress Met Comment 08-01-23 progress met goal continue with goal to progress education PT Problem 2 PT Problem #2 Pain PT Goal 1 Goal 1* pt report pain at worst rating of 7/10 2* Oswestry self assessment functional score of 50 % limitation in activity 3* pt report sleeping 4 hours 4* pt able to state 3 things he can do to decrease his pain Progress Partially Met Comment 08-01-23 progress met goals 2,4; NEW GOALS: 1* pain rating at worst 7/10; 2* self assessment Oswestry score of 30% limitation 3* pt report sleeping tolerance of 4 hours/time PT Problem 3 PT Problem #3 Impaired Strength PT Goal 1 Goal 1* pt perform 20 reps of mat strengthening exercises with good control 2* pt able to single leg stand on R x 5 seconds Progress Not Met Comment 08-01-23 progress goals not met continue towards goals PT Problem 4 PT Problem #4 Impaired Flexibility PT Goal 1 Goal anterior hip/quad length with prone knee flexion 1* R 110' 2* L 120' hamstring length with supine SLR 3* R 40' 4* L 45' 5* supine R hip flexion 90' prone hip extension 6* R 0' 7* L 0' Progress Met
--- NOTE | 2023-08-01 09:53 | PTOPPROG ---
Assessment and note entered by Brina Gomez, PT Evaluation Information Assessment Status Progress Diagnosis R hip pain Onset Oct 2022 Subjective Information pain is the same; had xray of R leg at another facility-did not show anything; frustrated about the hip still hurting; do not have an appointment for pain management--need to call and get an appointment; was told he needed surgery on his back, but does not want to have surgery; and does not want pain meds; want to continue therapy for his back and hip; PAIN: range in the past week: 8-10/10; medial and lateral thigh; shoots from lateral R thigh to front of thigh; also have pain in R low back increase pain walking: stand/walk tolerance 45 min decrease pain: wear compression sleeve over entire leg, sit/rest, TENS unit at home;deep tissue massager sleeping about 3 hours at a time; Assessment PT Clinical Summary Alan has received 7 PT sessions. Compared to the initial evaluation: pain rating from 10-20/10 to 8-10/10; self assessment Oswestry from 62- 40% limitation in activity tolerance; reported walking tolerance increased from 20 to 45 min and sleep tolerance same at 3 hours/time; increase flexibility of R and L hamstring, anterior hip/quad; and R hip flexion motions; increase trunk and hip strength; Continues to have pain with palpation over low back and R distal ITB; The goals were partially met. Continue PT treatment with aquatic and land exercises to increase trunk and hip strength, modalities to decrease pain and education to progress HEP and posture/position of spine. Plan of Care Interventions Aquatic Therapy,Hot Pack/Cold Pack,Manual Therapy, Mechanical Traction,Neuro Re-education,Patient Education,Therapeutic Activities, Therapeutic Exercise,Ultrasound,Other Other Interventions VITO ward PT Services Indicated Yes Treatment Frequency and 2x/wk for 4 weeks Duration These treatments will address the objective and functional deficits as defined above. The patient will be advanced safely and appropriately in order for the patient to progress towards his/her prior level of function. Additional exercises will be introduced and as well as a
--- NOTE | 2023-08-05 12:01 | PCPTNOTE ---
pt called to clerical staff and had all of his aquatic appointments changed to land treatments.
--- NOTE | 2023-08-22 09:01 | PCPTNOTE ---
pt called and canceled today's appt--unable to make it in today.
--- NOTE | 2023-08-28 15:15 | PTOPDC ---
Assessment and note entered by Brina Gomez, PT Evaluation Information Assessment Status Discharge Diagnosis R hip pain Onset Oct 2022 Subjective Information is not having as much pain in leg, still have R knee pain--to get injections in it; have been doing the exercises at home, have been riding his home recumband bike about 4 miles; Reported Pain Level Pain Score Self Report Additional Pain Score Comments pain in past week of R hip 0-3/10; sleep 3-4 hours at time, is not a good sleeper; pain in R knee 3/10; increase pain in knee with standing- arthritis in knee, to have injection to put off having it replaced; Assessment PT Clinical Summary Alan has received 12 PT sessions. Compared to the last progress report: pain rating from 8-10/10 to 0-3/10; Oswestry self assessment from 40% to 20% limitation in activity level; sleeping tolerance from 3 hr to 3-4 hours at time; increase strength of R hip with mat and standing exercises--single leg stand improved from 2 to 10 seconds; increase flexibility of R hamstring with SLR; continues to have pain with supine R hip flexion motion; The goals were partially met. Discharge PT services. Plan of Care PT Services Indicated No
== END 2023-08-28 16:10 | disposition home or self-care (01) ==
LOC: ANHPT 14:30
PROVIDERS: PCP Family Medicine; Visit Provider Family Medicine
DX: M54.50 Low back pain, unspecified (principal); M25.551 Pain in right hip
CPT/HCPCS: 97014; 97110; 97140; 97162; 97530; G0283

== ENCOUNTER 2023-11-20 13:04 | Outpatient (CLI) | payer BC, SELFPAY ==
--- NOTE | ~2023-11-20 | CT_ITS ---
EXAMINATION: CT abdomen pelvis w con DATE: 11/20/2023 13:34 INDICATION: Left lower quadrant abdominal pain. Rectal bleeding. TECHNIQUE: Computed tomography (CT) of the abdomen and pelvis was performed with 100 mL Omnipaque 350 intravenous contrast. Automated exposure control and iterative reconstruction technique were employe d. The dose-length product was 1307.61 mGy-cm. COMPARISON: CT abdomen and pelvis 02/07/2022 FINDINGS: The visualized portions of the lung bases demonstrate mild atelectasis. No pleural effusion . The heart size is normal. No pericardial effusion. There is diffuse hepatic steatosis. There are ga llstones in the gallbladder, which is contracted. The spleen, pancreas, adrenal glands, and kidneys a re normal. There is a supraumbilical ventral hernia containing fat. There is chronic diffuse bladder wall thickening, likely secondary to chronic outlet obstruction or from the mildly enlarged prostate. There is diverticulosis of the colon without evidence of diverticulitis. There are no dilated loops of bowel. The appendix is normal. There are no pathologically enlarged lymph nodes. There is no free intraperitoneal fluid. There is a total right hip arthroplasty. There is severe thoracic and lumbar s pondylosis. IMPRESSION: 1. Supraumbilical ventral hernia containing fat. 2. Diffuse hepatic steatosis. 3. Cholelithiasis. Reviewed, dictated and finalized at location [facility]. [facility]
[2023-11-20 13:25] LABS: Estimated Glomerular Filt Rate > 60
== END 2023-11-20 13:05 | disposition home or self-care (01) ==
LOC: ANHIMG 13:10
PROVIDERS: PCP Family Medicine; Visit Provider Nurse Practitioner
DX: R10.32 Left lower quadrant pain (principal); K62.5 Hemorrhage of anus and rectum; K80.20 Calculus of gallbladder without cholecystitis without obstruction; K76.0 Fatty (change of) liver, not elsewhere classified; K43.9 Ventral hernia without obstruction or gangrene
CPT/HCPCS: 74177; Q9967

== ENCOUNTER 2023-12-19 00:16 | Day surgery (SDC) | payer BC, SELFPAY ==
[2023-11-28 15:12] VITALS: BMI 31.4
--- NOTE | 2023-12-17 09:12 | SUR.PREOP ---
Patient called regarding upcoming procedure. Voicemail left regarding appointment times.
--- NOTE | 2023-12-18 17:43 | PM.HPGS ---
History of Present Illness History of Present Illness Consent: Risks, benefits, and alternatives have been discussed and questions answered. Patient agrees to proceed with procedure. Chief complaint: abdominal distension gaseous,GERD,Dysphagia Narrative: Alan Gavin is a 63 year old male Who reports a history of ulcers as a child.? He states for several years he has been having dysphagia to both solids and liquids. He seemed to catch in his throat and want to go down his throat.? He states he will get choked up. States he inhales his food.? He also reports immediate postprandial abdominal bloating with increasing gas.? He does take esomeprazole 40 mg twice per day. there is a family history of stomach cancer in his grandfather and uncle. Review of Systems Review of Systems: All systems reviewed & are unremarkable except as noted in HPI and below PMFSH Past Medical History Medical History Allergic sinusitis Arthritis Back pain Chronic pain syndrome COPD (chronic obstructive pulmonary disease) Diabetes type 2, controlled Epigastric hernia Fibromyalgia Gastric ulcer GERD (gastroesophageal reflux disease) Hernia of abdominal wall History of angina IBS (irritable bowel syndrome) LLQ abdominal pain Obesity Peripheral neuropathy Pinworm infection Pneumonia Postprandial abdominal bloating Rectal bleeding Shingles Surgical History Surgical History Hx of shoulder surgery lt shoulder S/P total hip arthroplasty Right hip Family History Family History Father Family history of Parkinson's disease Melanoma Nasal polyps Hypertension Hypercholesteremia Mother Osteoporosis Hypertension Hypercholesteremia Acute myocardial infarction Heart disease Other Lung cancer maternal uncle Diabetes mellitus type I, maternal uncle Stomach cancer paternal uncle Brain cancer paternal uncle Grandparent No problems noted. Social History Social History Social History: The patient is and lives with his . He has 2 children. He is a former smoker. 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 The patient desires to have his is the durable power insurance defense attorney for healthcare. Code status full code Smoking packs per day: 2 Smoking cigarettes per day: 40.0 Years smoked: 40 Smoking pack-years: 80.00 Smoking status: Former smoker Tobacco type: cigarettes Second hand tobacco smoke exposure: No Smoking end date: 10/28/11 Alcohol intake: current Drinks per week: 4 Substance use: never Substance use type: does not use Lack of Transportation: No Lack of Food: Never True Current Housing: I Have Housing Concerned About Future Housing: No Difficulty Paying Gas/Electric Bills: No Difficulty Paying for Meds: No Currently Unemployed: No Education: High School Diploma/GED Difficulty w/ Childcare or Family Care: No Living arrangements: with family Occupation/Education: occupation Additional occupation/education comments: Self employed Gender identity (if verbalized by the patient): Male Sexual Orientation (if Verbalized by the Patient): Straight or Heterosexual Spiritual care concerns: No Meds Home Medications and Allergies Home Medications Medication Instructions Recorded Confirmed Type albuterol 90 mcg/actuation aerosol 90 mcg inhalation Q6H PRN Wheezing 10/02/22 11/28/23 History inhaler aspirin 81 mg tablet,delayed 81 mg PO DAILY 10/02/22 11/28/23 History release escitalopram oxalate 20 mg tablet 20 mg PO HS 10/02/22 11/28/23 History esomeprazole magnesium 40 mg 40 mg PO BID 10/02/22 11/28/23 History capsule,delayed release fluticasone propionate 50 1 spray intranasal DAILY PRN
[2023-12-19 07:51] VITALS: BP 143/79; PULSE 87; RESP 18; TEMP 36.4; O2SAT 95
[2023-12-19] MEDS: LACTATED RINGERS 1,000 ML 150 ML IV CONT (08:01)
--- NOTE | 2023-12-19 08:36 | WPDANESEPPF ---
Anes - Initial Pre Proc Eval Procedure: Operation Date: 12/19/23 09:00 Proposed Procedures p Esophagogastroduodenoscopy - Chris Sofia MD Date/Time: 12/19/23 08:36 Surgeon: Chris Sofia MD Pre Op Diagnosis: abdominal distension gaseous,GERD,Dysphagia Patient Data Age: 63 Gender: M Height: 1.7 m Weight: 99.1 kg Last Vital Signs Temp 97.5 F L 12/19/23 07:51 Pulse 87 12/19/23 07:51 Resp 18 12/19/23 07:51 BP 143/79 H 12/19/23 07:51 Pulse Ox 95 12/19/23 07:51 O2 Del Method Room Air 12/19/23 07:51 Allergies Allergy/AdvReac Type Severity Reaction Status Date / Time shrimp Allergy Severe Hives Verified 12/19/23 07:49 ibuprofen [From Motrin] AdvReac Intermediate Migraine Verified 12/19/23 07:49 Home Medications Medication Instructions Recorded Confirmed Type albuterol 90 mcg/actuation aerosol 90 mcg inhalation Q6H PRN Wheezing 10/02/22 11/28/23 History inhaler aspirin 81 mg tablet,delayed 81 mg PO DAILY 10/02/22 11/28/23 History release escitalopram oxalate 20 mg tablet 20 mg PO HS 10/02/22 11/28/23 History esomeprazole magnesium 40 mg 40 mg PO BID 10/02/22 11/28/23 History capsule,delayed release fluticasone propionate 50 1 spray intranasal DAILY PRN 10/02/22 11/28/23 History mcg/actuation nasal Congestion spray,suspension gabapentin 100 mg capsule 300 mg PO BID 10/02/22 11/28/23 History losartan 50 mg-hydrochlorothiazide 1 tablet PO QHS 10/02/22 11/28/23 History 12.5 mg tablet trazodone 50 mg tablet 50 mg PO HS 10/02/22 11/28/23 History Adults Multivitamin 1 tab-cap PO DAILY 11/28/23 11/28/23 History Testosterone Booster 20,000 mg PO DAILY 11/28/23 11/28/23 History chromium picolinate 1,000 mcg 1,000 mcg PO DAILY 11/28/23 11/28/23 History tablet fenofibrate micronized 134 mg 134 mg PO QACBREAK 11/28/23 11/28/23 History capsule potassium 99 mg tablet 99 mg PO DAILY 11/28/23 11/28/23 History Patient hx anesthesia problems: none Family hx anesthesia problems: none Results Review: All pre-operative results and documents have been reviewed as part of the pre-operative evaluation. [facility] Past Medical History Medical History Allergic sinusitis Arthritis Back pain Chronic pain syndrome COPD (chronic obstructive pulmonary disease) Diabetes type 2, controlled Epigastric hernia Fibromyalgia Gastric ulcer GERD (gastroesophageal reflux disease) Hernia of abdominal wall History of angina IBS (irritable bowel syndrome) LLQ abdominal pain Obesity Peripheral neuropathy Pinworm infection Pneumonia Postprandial abdominal bloating Rectal bleeding Shingles Surgical History Surgical History Hx of shoulder surgery lt shoulder S/P total hip arthroplasty Right hip Family History Family History Father Family history of Parkinson's disease Melanoma Nasal polyps Hypertension Hypercholesteremia Mother Osteoporosis Hypertension Hypercholesteremia Acute myocardial infarction Heart disease Other Lung cancer maternal uncle Diabetes mellitus type I, maternal uncle Stomach cancer paternal uncle Brain cancer paternal uncle Grandparent No problems noted. Social History Social History Social History: The patient is and lives with his . He has 2 children. He is a former smoker. 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 The patient desires to have his is the durable power file drawer finisher for healthcare. Code status full code Smoking packs per day: 2 Smoking cigarettes per day: 40.0 Years smoked: 40 Smoking pack-years: 80.00 Smoking status: Former smoker Tobacco type: cigarettes Second hand tobacco smoke exposure: No Smoking end date: 10/28/11 Alcohol
[2023-12-19] MEDS: BENZOCAINE (*SP) 60 ML SPRAY CAN (HURRICAINE) 1 SPRAY MUCOUS MEM (08:47)
[2023-12-19 08:56] VITALS: BP 84/59; PULSE 77; RESP 14; O2SAT 95
[2023-12-19 09:06] VITALS: BP 112/73; PULSE 80; RESP 24; O2SAT 97
[2023-12-19 09:16] VITALS: BP 119/84; PULSE 71; RESP 20; O2SAT 99
== END 2023-12-19 09:26 | disposition home or self-care (01) ==
PROVIDERS: PCP Family Medicine; Visit Provider Internal Medicine Gastroenterology
PROC: 0DJ08ZZ Inspection of Upper Intestinal Tract, Via Natural or Artificial Opening Endoscopic (ICD-10-PCS; CPT 43235; principal; 2023-12-19 09:00)
DX: K21.9 Gastro-esophageal reflux disease without esophagitis (principal); J44.9 Chronic obstructive pulmonary disease, unspecified; E11.42 Type 2 diabetes mellitus with diabetic polyneuropathy; M79.7 Fibromyalgia; K58.9 Irritable bowel syndrome, unspecified; G89.4 Chronic pain syndrome; Z79.890 Hormone replacement therapy; Z79.51 Long term (current) use of inhaled steroids; Z79.82 Long term (current) use of aspirin; Z87.891 Personal history of nicotine dependence; E66.9 Obesity, unspecified; Z68.34 Body mass index [BMI] 34.0-34.9, adult
CPT/HCPCS: 43239; 88305; J7120

== ENCOUNTER 2024-07-22 10:30 | Outpatient (CLI) | payer BC, SELFPAY ==
--- NOTE | 2024-07-22 10:45 | ECG_ITS ---
Test Date: 2024-07-22 10:54:57 Measurements Intervals [place] Rate: 96 P: 17 NE: 146 QRS: -5 QRSD: 89 T: 33 QT: 339 QTc: 428 Interpretive Statements SINUS RHYTHM BASELINE ARTIFACT- I, II, III, AVR, AVL, AVF, V1-V6 NORMAL ECG No previous ECG available for comparison Electronically Signed On 07-22-2024 11:53:37 CDT by Hermilo Alcala D.O.
[2024-07-22 12:49] LABS: Anion Gap 11 mmol/L (4-12); Blood Urea Nitrogen 14 mg/dL (9-20); Calcium 9.2 mg/dL (8.4-10.2); Carbon Dioxide 26 mmol/L (22-30); Chloride 98 mmol/L (98-107); Estimated Glomerular Filt Rate > 60; Glucose 169 mg/dL (65-110); Potassium 3.5 mmol/L (3.4-5.0); Sodium 135 mmol/L (137-145)
== END 2024-07-22 10:31 | disposition home or self-care (01) ==
PROVIDERS: Anesthesiology; PCP Family Medicine; Visit Provider Orthopaedic Surgery
DX: I10 Essential (primary) hypertension (principal); Z01.818 Encounter for other preprocedural examination
CPT/HCPCS: 36415; 80048; 93005

== ENCOUNTER 2024-07-27 00:32 | Day surgery (SDC) | payer BC, SELFPAY ==
--- NOTE | 2024-07-20 13:25 | PC.NURSE ---
Report to the Outpatient Waiting Room, entrance under the green pavilion located off [facility], at time _6 AM on date _07/27/24 . Planned Procedure Time: _7:30 AM .? Time changes happen often and if your time is changed the preop area will call you the afternoon before. - You and your visitor will be asked to self-screen and do not enter if you have any COVID symptoms. Please call surgeon if you need to reschedule. - A mask is optional within the hospital at this time. Patients may have clear liquids (water, carbonated beverages, clear teas, apple juice) until 3 hours prior to surgery( 4:30 AM) with a maximum of 20 ounces. - No food from midnight until time of surgery and no smoking - Infants may have breast milk until 4 hours before surgery, infant formula 6 hours prior to surgery. - Children will be allowed to drink immediately following surgery.? If applicable, please bring a bottle or sippy cup to assist with drinking. Juice, water, soda, and popsicles are readily available.? For infants on formula, please bring formula the day of surgery.? Pacifiers are allowed. Take only the following medications with a SIP of water on the morning of surgery: _GABAPENTIN DO NOT STOP ANY OF YOUR OTHER PRESCRIPTION MEDICATIONS PRIOR TO SURGERY EXCEPT THE FOLLOWING Medications to discontinue per physician __HOLD ALL VITAMINS AND SUPPLEMENTS 3 DAYS PRE OP LAST DOSE 07/23/24. ASPIRIN PER DR FLORES Please no make-up, nail sinhala, hairspray, perfume, deodorant, or body powder the day of surgery.? No jewelry (including any body piercings) or valuables the day of surgery, leave them at home.? Please take a shower or bath the night before, or the morning of, surgery with an antibacterial soap.? Wear comfortable, loose fitting clothing.? Children are encouraged to wear pajamas. - Jewelry must be removed prior to entering the operating room.? Rings and piercings that are not removed may be cut off. - The hospital will not accept responsibility for valuables.? - Please leave all valuables, including medications, at home the day of surgery. If you are going home after surgery, a licensed starting gate driver must drive you home.? - NO public transportation without another adult if you receive anesthesia. - We recommend that an adult stay with you for 24 hours following discharge. - We also recommend that you do not drive, make important decision, drink alcoholic beverages, or take any drugs that were not prescribed by your health care provider for at least 24 hours after your discharge time. For Pediatric surgeries, we recommend two adults accompany the child home. Follow any additional instructions given to you from your surgeon. Telephone instructions given to __PATIENT and asked if any additional questions and then verbalized understanding. Patient advised to call surgeon office or pre surgery nurse liaison [phone] if any additional questions.
[2024-07-20 13:33] VITALS: BMI 35.4
--- NOTE | 2024-07-23 20:01 | PM.IMHP ---
H&P: HPI History of Present Illness Date/Time: 07/23/24 20:01 Chief Complaint: Patient has RIGHT shoulder pain. He has failed conservative treatment and would like to proceed with Rotator Cuff repair nand distal clavicle excision. Review of Systems Review of Systems: All systems reviewed & are unremarkable except as noted in HPI and below [facility] Past Medical History Medical History (Updated 07/23/24 @ 20:05 by Jose Luis Guallpa MD) Abdominal pain in male Abdominal wall mass Alcohol abuse Allergic sinusitis Arthritis Back pain Chronic GERD Chronic pain due to injury Chronic pain syndrome Chronic pain syndrome Colon cancer screening COPD (chronic obstructive pulmonary disease) Diabetes type 2, controlled Dietary counseling and surveillance (06/10/19) Elevated BP without diagnosis of hypertension Epigastric hernia Essential (primary) hypertension Fibromyalgia TATIANNA (generalized anxiety disorder) Gastric ulcer GERD (gastroesophageal reflux disease) Hernia of abdominal wall History of angina IBS (irritable bowel syndrome) LLQ abdominal pain Obesity Pain of right heel Peripheral neuropathy Pinworm infection Pneumonia Postprandial abdominal bloating Psychophysiological insomnia Rectal bleeding Shingles Surgical History Surgical History Hx of shoulder surgery lt shoulder S/P total hip arthroplasty Right hip Family History Family History Father Family history of Parkinson's disease Melanoma Nasal polyps Hypertension Hypercholesteremia Mother Osteoporosis Hypertension Hypercholesteremia Acute myocardial infarction Heart disease Other Lung cancer maternal uncle Diabetes mellitus type I, maternal uncle Stomach cancer paternal uncle Brain cancer paternal uncle Grandparent No problems noted. Social History Social History Social History: The patient is and lives with his . He has 2 children. He is a former smoker. 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 The patient desires to have his is the durable power sock knitting machine operator for healthcare. Code status full code Smoking packs per day: 2 Smoking cigarettes per day: 40.0 Years smoked: 40 Smoking pack-years: 80.00 Smoking status: Former smoker Tobacco type: cigarettes Second hand tobacco smoke exposure: No Smoking end date: 10/28/11 Alcohol intake: current Drinks per week: 14 Substance use: never Substance use type: does not use Do You Feel Safe in your Home?: Yes Lack of Transportation: No Lack of Food: Never True Current Housing: I Have Housing Concerned About Future Housing: No Difficulty Paying Gas/Electric Bills: No Difficulty Paying for Meds: No Currently Unemployed: No Education: High School Diploma/GED Difficulty w/ Childcare or Family Care: No Living arrangements: with family Occupation/Education: retired Additional occupation/education comments: Self employed/[employer] Gender identity (if verbalized by the patient): Male Sexual Orientation (if Verbalized by the Patient): Straight or Heterosexual Spiritual care concerns: No Meds Home Medications and Allergies Home Medications Medication Instructions Recorded Confirmed Type escitalopram oxalate 20 mg tablet 20 mg PO HS 10/02/22 07/20/24 History esomeprazole magnesium 40 mg 40 mg PO BID 10/02/22 07/20/24 History capsule,delayed release gabapentin 100 mg capsule 200 mg PO BID 10/02/22 07/20/24 History losartan 50 mg-hydrochlorothiazide 1 tablet PO QHS 10/02/22 07/20/24 History 12.5 mg tablet trazodone 50 mg tablet 50 mg PO HS 10/02/22 07/20/24 History fenofibrate micronized 134 mg 134 mg PO DAILY 11/28/23 07/20/24 History capsule hydrocodone 5 mg-acetaminophen 325 1 tablet PO Q4H PRN pain #30 t
[2024-07-27] VITALS (8 sets, daily range): BP systolic 126–142; BP diastolic 76–93; PULSE 87–112; RESP 14–20; TEMP 36.2–36.3; O2SAT 92–99; BMI 34.4
[2024-07-27] MEDS: LACTATED RINGERS 1,000 ML 30 ML IV CONT ×2 (06:40→09:27)
[2024-07-27] MEDS: ACETAMINOPHEN 500 MG TABLET 1000 MG PO (06:54)
[2024-07-27] MEDS: KETOROLAC 15 MG/ML VIAL (*BKC) IV PUSH (06:54)
--- NOTE | 2024-07-27 06:59 | WPDHPUPDATE1 ---
History and Physical Update Update Date/Time: 07/27/24 06:59 History and Physical has been reviewed, including an updated exam of the patient. There are NO changes in the patient's condition. Risks, benefits, and alternatives have been discussed and questions answered. Patient agrees to proceed with procedure.
--- NOTE | 2024-07-27 07:07 | WPDANESEPPF ---
Anes - Initial Pre Proc Eval Procedure: Operation Date: 07/27/24 07:30 Proposed Procedures p Right Rotator Cuff Repair Distal Clavicle Excision - Jose Luis Guallpa MD Date/Time: 07/27/24 07:07 Surgeon: Jose Luis Guallpa MD Pre Op Diagnosis: Rt Shoulder Rot Cuff Tear, Rt AC Arthritis Patient Data Age: 63 Gender: M Height: 1.7 m Weight: 99.8 kg Last Vital Signs Temp 97.2 F L 07/27/24 06:05 Pulse 87 07/27/24 06:05 Resp 18 07/27/24 06:05 BP 142/84 H 07/27/24 06:05 Pulse Ox 96 07/27/24 06:05 O2 Del Method Room Air 07/27/24 06:05 Allergies Allergy/AdvReac Type Severity Reaction Status Date / Time shrimp Allergy Severe Hives Verified 07/27/24 06:20 ibuprofen [From Motrin] AdvReac Intermediate Migraine Verified 07/27/24 06:20 Home Medications Medication Instructions Recorded Confirmed Type escitalopram oxalate 20 mg tablet 20 mg PO HS 10/02/22 07/20/24 History esomeprazole magnesium 40 mg 40 mg PO BID 10/02/22 07/20/24 History capsule,delayed release gabapentin 100 mg capsule 200 mg PO BID 10/02/22 07/27/24 History losartan 50 mg-hydrochlorothiazide 1 tablet PO QHS 10/02/22 07/20/24 History 12.5 mg tablet trazodone 50 mg tablet 50 mg PO HS 10/02/22 07/20/24 History fenofibrate micronized 134 mg 134 mg PO DAILY 11/28/23 07/27/24 History capsule hydrocodone 5 mg-acetaminophen 325 1 tablet PO Q4H PRN pain #30 tabs 07/09/24 07/20/24 Rx mg tablet albuterol sulfate 90 mcg/actuation 2 puff inhalation PRN PRN Wheezing 07/20/24 07/20/24 History aerosol inhaler aspirin 81 mg tablet,delayed 81 mg PO DAILY 07/20/24 07/27/24 History release (Adult Low Dose Aspirin) cinnamon bark 500 mg capsule 500 mg PO DAILY 07/20/24 07/27/24 History (Cinnamon) lactobacillus combination no.8 3 3 cell PO DAILY 07/20/24 07/27/24 History billion cell capsule magnesium 200 mg tablet 200 mg PO BID 07/20/24 07/27/24 History multivit with minerals-iron 18 1 tablet PO DAILY 07/20/24 07/27/24 History mg-folic ac 400 mcg-vit K 25 mcg tablet (Adults Multivitamin) Patient hx anesthesia problems: other (Pt required CPAP/BiPap after hip surgery in 2012. ) Family hx anesthesia problems: none Results Review: All pre-operative results and documents have been reviewed as part of the pre-operative evaluation. [facility] Past Medical History Medical History Abdominal pain in male Abdominal wall mass Alcohol abuse Allergic sinusitis Arthritis Back pain Chronic GERD Chronic pain due to injury Chronic pain syndrome Chronic pain syndrome Colon cancer screening COPD (chronic obstructive pulmonary disease) Diabetes type 2, controlled Dietary counseling and surveillance (06/10/19) Elevated BP without diagnosis of hypertension Epigastric hernia Essential (primary) hypertension Fibromyalgia TATIANNA (generalized anxiety disorder) Gastric ulcer GERD (gastroesophageal reflux disease) Hernia of abdominal wall History of angina IBS (irritable bowel syndrome) LLQ abdominal pain Obesity Pain of right heel Peripheral neuropathy Pinworm infection Pneumonia Postprandial abdominal bloating Psychophysiological insomnia Rectal bleeding Shingles Surgical History Surgical History Hx of shoulder surgery lt shoulder S/P total hip arthroplasty Right hip Family History Family History Father Family history of Parkinson's disease Melanoma Nasal polyps Hypertension Hypercholesteremia Mother Osteoporosis Hypertension Hypercholesteremia Acute myocardial infarction Heart disease Other Lung cancer maternal uncle Diabetes mellitus type I, maternal uncle Stomach cancer paternal uncle Brain cancer paternal uncle Grandparent No problems noted. Social History Soci
[2024-07-27] MEDS: ceFAZolin 2 GM/D5W 50 ML 2 GM/50 ML BAG IVPB (07:41)
--- NOTE | 2024-07-27 08:56 | W.PM.PROC2 ---
Procedure Note - Detailed Date of Procedure 07/27/24 Pre-op Diagnosis Rt Shoulder Rot Cuff Tear, Rt AC Arthritis Post-op Diagnosis Same Procedure Performed Rotator cuff repair, distal clavicle excision Surgeon Jose Luis Guallpa MD Anesthesia General Description of Procedure Patient brought to the operative room #8. A general anesthetic was administered. The patient was placed in the beach chair position with the RIGHT shoulder exposed.? After sterile prep and drape, standard posterior and lateral portals were used for arthroscopy. The joint itself looked reasonably. The biceps was 20% torn. This was debrided, the remainder of the biceps looked intact.? There was fraying and tearing of the rotator cuff area in the supraspinatus tear region. This was gently debrided.? The subacromial space had an intense bursa, this was debrided with a shaver and acromioplasty performed arthroscopically.? The subacromial space was quite tight initially. I then proceeded to open the shoulder. A longitudinal incision made from the AC joint distalward over the shoulder.? Dissection carried down to the fascia. The fascia overlying the acromioclavicular joint was split. The AC joint found and a distal clavicle excision performed removing 3 to 4 millimeters of bone.? The edges beveled.? The deltoid was then split from the tip of the acromion. The remainder of the bursa was debrided.? The rotator cuff was torn in the supraspinatus interval. This was debrided and repaired to bone using #2 Ethibond suture.? At this point the deltoid was repaired to itself,the acromion and the trapezius #2 Ethibond. The skin was closed with 2-0 Vicryl and loyda.? Sterile dressing applied patient tolerated well left the operating room satisfactory condition. Estimated Blood Loss 50 Drains No Packing No Pathology None sent Complications No immediate complications Condition Stable Disposition PACU [facility] Billing Surgery - Charge Forward: Surgery Billing (24210 Rotator Cuff Repair [id number] [facility] [place])
[2024-07-27] MEDS: fentaNYL CITRATE INJ (*CRX) 100 MCG/2 ML VIAL 25 MCG IV PUSH (10:08)
== END 2024-07-27 11:10 | disposition home or self-care (01) ==
PROVIDERS: PCP Family Medicine; Visit Provider Orthopaedic Surgery
PROC: (CPT 23420; principal; 2024-07-27 07:30)
DX: M75.101 Unspecified rotator cuff tear or rupture of right shoulder, not specified as traumatic (principal); M19.019 Primary osteoarthritis, unspecified shoulder; I10 Essential (primary) hypertension; E11.9 Type 2 diabetes mellitus without complications; K21.9 Gastro-esophageal reflux disease without esophagitis; M79.7 Fibromyalgia; F41.1 Generalized anxiety disorder; J44.9 Chronic obstructive pulmonary disease, unspecified; Z87.891 Personal history of nicotine dependence; E66.9 Obesity, unspecified; Z68.34 Body mass index [BMI] 34.0-34.9, adult; Z79.51 Long term (current) use of inhaled steroids; Z79.82 Long term (current) use of aspirin
CPT/HCPCS: 23412; 23120; A9270; J0171; J0690; J1100; J1885; J2250; J2371; J2405; J2704; J3010; J7120

== ENCOUNTER 2025-04-05 15:45 | Outpatient (CLI) | payer BC, SELFPAY ==
--- NOTE | ~2025-04-05 | CT_ITS ---
CT brain wo con Ordering provider: Raiza Vidal, LOAN REVIEW ANALYST History: 64 years Male with . Headache, worsening . Comparison: None. Technique: CT of the head without contrast. Radiation reduction technique utilized. The dose-length p roduct was 599.57 mGy-cm. FINDINGS: BRAIN PARENCHYMA AND CSF SPACES: Mild leukoaraiosis and diffuse cortical atrophy. Mild atheromatous d isease. No midline shift, mass effect or hemorrhage. The brain parenchyma and CSF spaces are otherwi se normal. VISUALIZED PARANASAL SINUSES: Well aerated. MASTOIDS: Well aerated. BONES: The bones appear intact. SOFT TISSUES: Visualized nasopharynx is normal. Superficial soft tissues are normal. IMPRESSION: No acute intracranial findings. Reviewed, dictated and finalized at location A.
== END 2025-04-05 15:46 | disposition home or self-care (01) ==
LOC: MICIMG 15:46
PROVIDERS: PCP Nurse Practitioner; Visit Provider Nurse Practitioner
DX: R51.9 Headache, unspecified (principal)
CPT/HCPCS: 70450

== ENCOUNTER 2025-05-03 08:32 | Outpatient (CLI) | payer BC, SELFPAY ==
--- NOTE | ~2025-05-03 | CT_ITS ---
Non-contrast CT scan of the Abdomen Clinical indication: Ventral hernia Technique: 2.5 mm axial scans were obtained through the abdomen without intravenous or oral contrast . Dose reduction technique was used on this scan by utilizing automated exposure control and iterativ e reconstruction technique. The dose-length product (DLP) was 733.03 mGy-cm. COMPARISON: 11/20/2023 Findings: Images through the lung bases reveal no abnormalities. There is no evidence of renal or ureteral calculi. The kidneys and the ureters are nondilated. Probable diffuse fatty infiltration of liver. Small calcified gallstones are present. The spleen, valencia creas, and adrenals appear normal. There is no aortic aneurysm. There is a small fat-containing umbilical hernia. There is an additional small ventral hernia superio r to the umbilicus containing fat and small amount of fluid. Visualized bowel loops are unremarkable. No ascites. Impression: Ventral hernia superior to the umbilicus containing fat and small amount of fluid. Correlate clinical ly for strangulation/incarceration. Additional small fat-containing umbilical hernia. Cholelithiasis. Diffuse fatty infiltration of liver. Reviewed, dictated and finalized at location . Impression: Ventral hernia superior to the umbilicus containing fat and small amount of flu id. Correlate clinically for strangulation/incarceration. Additional small fat-containing umbilical hernia. Cholelithiasis. Diffuse fatty infiltration of liver.
== END 2025-05-03 08:33 | disposition home or self-care (01) ==
LOC: MICIMG 08:33
PROVIDERS: PCP Nurse Practitioner; Visit Provider Surgery
DX: K43.9 Ventral hernia without obstruction or gangrene (principal); K42.9 Umbilical hernia without obstruction or gangrene; K76.0 Fatty (change of) liver, not elsewhere classified
CPT/HCPCS: 74150

== ENCOUNTER 2025-06-08 10:18 | Outpatient (CLI) | payer BC, SELFPAY ==
--- OUTSIDE RECORDS SUMMARY | 2025-06-08 11:08 | XMS_ITS | Encounter Summary ---
Author Organization [facility] Healthcare Address [address] [place] [address] Care Team Providers Care Transition Assistant Name Role Phone Raiza Vidal NP Primary Care Provider [phone] Encounter Details Date Type Department Care Team (Late st Contact Info) Description 05/06/2025 Results Follow-Up [facility] Primary Care at [address] [id number] Raiza Vidal NP [address] [place] [address] [address] [place] [address] MRI Lumbar Spine WO Contrast Social History Tobacco Use Types Packs/Day Years Used Date Smoking Tobacco: Former Cigarettes 2 1971 Smokeless Tobacco: Never Alcohol Use Standard Drinks/Week Comments Yes 0 (1 standard drink = 0.6 oz pur e alcohol) AUDIT-C Answer Date Recorded Q1: How often do you have a drink containing alcohol? Never 03/19/2025 Q2: How many drinks containi ng alcohol do you have on a typical day when you are drinking? Patient does not drink Q3: How often do you have si x or more drinks on one occasion? 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
--- OUTSIDE RECORDS SUMMARY | 2025-06-08 11:08 | XMS_ITS | Clinical Summary ---
Author Organization [facility] [address] [facility] Address [address] [place] [address] Care Team Providers Care Field Counsel Name Role Phone Raiza Vidal BRAULIO Primary Care Provider [phone] Allergies Active Allergy Reactions Criticality Noted Date Comments Ibuprofen Unknown 01/27/2019 Brand Motrin Rosuvastatin Stomach upset Low 10/10/2021 Medications aspirin 81 mg enteric coated tablet Take 1 tablet (81 mg total) by mouth daily Active budesonide-glycop yr-formoterol (BREZTRI) 160-9-4.8 mcg/actuation inhalerIndication s:Chronic bronchitis, unspecified chronic bronchitis type (HCC) Inhale 2 puffs 2 (two) times a day 32.1 g 3 025 Active ibuprofen (ADVIL,MOTRIN) 800 mg tabletIndications :Headache, worsening Take 1 tablet (800 mg total) by mouth 3 (three) times a day 90 tablet 2 025 Active diclofenac sodium (VOLTAREN) 1 % gel Apply 2 g topically 3 (three) times a day 500 g 1 025 Active fexofenadine (EJ) 180 mg tablet Take 1 tablet (180 mg total) by mouth daily Active albuterol HFA (PROVENTIL HFA,VENTOLIN HFA,PROAIR HFA) 90 mcg/actuation inhalerIndication s:Mixed simple and mucopurulent chronic bronchitis (HCC) Inhale 2 puffs every 6 (six) hours as needed for wheezing or shortness of breath 20.1 each Active ARIPiprazole (ABILIFY) 2 mg tabletIndications :Episode of recurrent major depressive disorder, unspecified depression episode severity Take 1 tablet (2 mg total) by mouth daily 90 tablet Active escitalopram (LEXAPRO) 20 mg tabletIndications :Episode of recurrent major depressive disorder, unspecified depression episode severity Take 1 tablet (20 mg total) by mouth daily [address] (NexIUM) 40 mg capsuleIndication s:Gastroesophagea l reflux disease without esophagitis TAKE 2 CAPSULES BY MOUTH EVERY DAY 200 capsule Active fenofibrate micronized (LOFIBRA) 134 mg capsuleIndication s:Mixed hyperlipidemia Take 1 capsule (134 mg total) by mouth daily before breakfast 90 capsule 1 Active lidocaine (LIDODERM) 5 % Place 1 patch on the skin daily for 12 hours Apply to painful area 12 hours per day, remove for 12 hours. 30 patch Active traZODone (DESYREL) 50 mg tabletIndications :Primary insomnia Take 1 tablet (50 mg total) by mouth 2 (two) times a day 180 tablet Active metFORMIN XR (GLUCOPHAGE XR) 500 mg 24 hr tabletIndications :Type 2 diabetes mellitus with hyperlipidemia (HCC) Take 2 tablets (1,000 mg total) by mouth daily with breakfast 180 tablet 2025 Active azelastine (ASTELIN) 137 mcg (0.1 %) nasal sprayIndications: Seasonal allergic rhinitis due to pollen Administer 1 spray into each nostril 2 (two) times a day Use in each nostril as directed 30 mL Active cetirizine (ZyrTEC) 10 mg tablet Take 1 tablet (10 mg total) by mouth daily as needed for allergies 90 tablet Active losartan-hydroCHL OROthiazide (HYZAAR) 50-12.5 mg per tabletIndications :Essential hypertension Take 1 tablet by mouth daily 90 tablet Active gabapentin (NEURONTIN) 100 mg capsuleIndication s:Neuropathic Pain Take 2 capsules (200 mg total) by mouth 3 (three) times a day 90 capsule 3 025 Active blood-glucose meter miscIndications:T ype 2 diabetes mellitus with hyperlipidemia (HCC) Use daily or as directed for monitoring of diabetes. Accu check guide 1 each 025 Active lancets miscIndications:T ype 2 diabetes mellitus with hyperlipidemia (HCC) Use daily or as directed for monitoring of diabetes. Accu check guide 100 each 1 025 Active blood glucose diagnostic (glucose blood) stripIndications: Type 2 diabetes mellitus with hyperlipidemia (HCC) Use daily or as directed for monitoring of diabetes. Accu check guide 100 each 1 025 2025 Active fluticasone propionate (FLONASE) 50 mcg/actuation nasal sprayIndications: Chronic frontal sinusitis Administer 2 sprays into each nostril daily 16 mL 1 025 Active tirzepatide (Mounjaro) 5 mg/0.5 mL pen injector injectionIndicati ons:Type 2 diabetes mellitus with hyperlipidemia (HCC) Inject 0.5 mL (5 mg total) under the skin once a week 2 mL 1 025 Active fluticasone propionate (FLONASE) 50 mcg/actuation nasal sprayIndications: Chronic frontal sinusitis Administer 2 sprays into each nostril daily 16 mL 1 025 2024 Discontinued(R eorder) tirzepatide (Mounjaro) 2.5 mg/0.5 mL pen injector injectionIndicati ons:Type 2 diabetes mellitus with hyperlipidemia (HCC) Inject 0.5 mL (2.5 mg total) under the skin once a week 2 mL 025 2024 Discontinued(R eorder) blood glucose diagnostic (glucose blood) stripIndications: Type 2 diabetes mellitus with hyperlipidemia (HCC) Use to check blood sugar 3x per day 100 each 11 025 2024 Discontinued(R eorder) lancets miscIndications:T ype 2 diabetes mellitus with hyperlipidemia (HCC) Use to check blood sugar 3x per day 100 each 11 025 2024 Discontinued(R eorder) blood-glucose meter miscIndications:T ype 2 diabetes mellitus with hyperlipidemia (HCC) Use daily or as directed for monitoring of diabetes. 1 each 025 2024 Discontinued(R eorder) tirzepatide (Mounjaro) 2.5 mg/0.5 mL pen injector injectionIndicati ons:Type 2 diabetes mellitus with hyperlipidemia (HCC) Inject 0.5 mL (2.5 mg total) under the skin once a week 2 mL 025 2024 Discontinued blood glucose diagnostic (glucose blood) stripIndications: Type 2 diabetes mellitus with hyperlipidemia (HCC) Use to check blood sugar 3x per day 100 each 11 025 2024 Discontinued(R eorder) blood glucose diagnostic (glucose blood) stripIndications: Type 2 diabetes mellitus with hyperlipidemia (HCC) Use to check blood sugar 3x per day 300 each 2 025 2024 Discontinued(A lternate therapy) lancets miscIndications:T ype 2 diabetes mellitus with hyperlipidemia (HCC) Use to check blood sugar 3x per day 100 each 11 025 2024 Discontinued(R eorder) blood glucose diagnostic (glucose blood) stripIndications: Type 2 diabetes mellitus with hyperlipidemia (HCC) Use to check blood sugar 3 times daily - accu check guide 100 each 1 025 2024 Discontinued(R eorder) Active Problems Problem Noted Date Diagnosed Date Hernia of abdominal wall 03/25/2025 Assessment & Plan (03/25/2025 7:05 PM CDT): Orders: Ambulatory referral to General Surgery; Future Severe obesity (BMI 35.0-39.9) with comorbidity 01/12/2025 Assessment & Plan (04/12/2025 10:56 AM CDT): Moderate episode of recurrent major depressive d isorder 03/22/2024 Assessment & Plan (01/12/2025 2:33 PM CDT): COntinues on lexapro and abilify. WIll montior response. Continues nad iwll monitor response. Cervical radiculopathy 02/05/2023 Osteoarthritis 12/10/2022 Chondromalacia of right patella 11/12/2022 History of total right hip replacement Osteoarthritis of left hip 06/19/2022 Spondylosis of lumbar region without myelopathy or radiculopathy 04/10/2022 Localized osteoarthritis of right shoulder 02/06 Bilateral primary osteoarthritis of hip 02/07/20 Chronic right shoulder pain 01/09/2022 Assessment & Plan (05/13/2024 11:17 AM CDT): Suspect RC origin, had tried otc analgesics, prescription medications, physical therapy, and steroid injection. Patient has had x-ray performed, needs MRI, ordered. Has appointment with Ortho 05/[address] Guallpa in [place], [place]. Rheumatoid arthritis with positive rheumatoid fa ctor 10/10/2021 Assessment & Plan (03/19/2025 3:51 PM CDT): Orders: CBC with auto differential; Future Rheumatoid factor; Future JARRETT ab ql w/rflx to JARRETT qn; Future Assessment & Plan (01/12/2025 2:34 PM CDT): NO active synoviitis and will monitor response. Assessment & Plan (10/10/2021 1:13 PM [employer]): Per patient history of - will retrieve records from previous pcp Essential hypertension 10/10/2021 Assessment & Plan (04/12/2025 10:56 AM CDT): Orders: losartan-hydroCHLOROthiazide (HYZAAR) 50-12.5 mg per tablet; Take 1 tablet by mouth daily Assessment & Plan (03/19/2025 3:51 PM CDT): Orders: Comprehensive metabolic panel; Future Assessment & Plan (01/12/2025 2:33 PM CDT): COntinues on losartan/HCTZ and will monitor response. NO sdie effects to medication. Assessment & Plan (10/10/2021 1:15 PM [employer]): Stable, continue medications same at this time Fasting labs entered, will notify patient of results as available Hyperlipidemia 10/10/2021 Assessment & Plan (04/15/2025 5:51 PM CDT): Continue fenofibrate Orders: fenofibrate micronized (LOFIBRA) 134 mg capsule; Take 1 capsule (134 mg total) by mouth daily before breakfast Assessment & Plan (03/19/2025 3:51 PM CDT): Orders: Lipid panel; Future Assessment & Plan (01/12/2025 2:33 PM CDT): Will follow response. Assessment & Plan (10/10/2021 1:14 PM [employer]): Fasting labs entered, will notify patient of results as available History of multiple concussions 10/10/2021 Assessment & Plan (10/10/2021 1:14 PM [employer]): Advised referral to neuro, he declines at this time Episode of recurrent major depressive disorder 1 12/11/2020 Assessment & Plan (04/15/2025 5:51 PM CDT): Continue Abilify 2 mg daily and Lexapro 20 mg daily. Denies any concerns today. Orders: ARIPiprazole (ABILIFY) 2 mg tablet; Take 1 tablet (2 mg total) by mouth daily escitalopram (LEXAPRO) 20 mg tablet; Take 1 tablet (20 mg total) by mouth daily Assessment & Plan (10/10/2021 1:15 PM [employer]): Stable, continue medications same at this time Trigger middle finger of left hand 10/10/2021 Assessment & Plan (10/10/2021 1:13 PM [employer]): Xray left hand, will notify him of results as they are available Advised ortho referral - he wants to await xray results first Primary insomnia 08/12/2018 Assessment & Plan (04/12/2025 10:56 AM CDT): Orders: traZODone (DESYREL) 50 mg tablet; Take 1 tablet (50 mg total) by mouth 2 (two) times a day Neuropathy 04/17/2018 Assessment & Plan (04/15/2025 5:51 PM CDT): Neuropathy well controlled with gabapentin 200 mg t.i.d. Orders: gabapentin (NEURONTIN) 100 mg capsule; Take 2 capsules (200 mg total) by mouth 3 (three) times a day Chronic fatigue 04/03/2018 Chronic obstructive pulmonary disease 05/29/2017 Assessment & Plan (04/12/2025 10:56 AM CDT): Orders: albuterol HFA (PROVENTIL HFA,VENTOLIN HFA,PROAIR HFA) 90 mcg/actuation inhaler; Inhale 2 puffs every 6 (six) hours as needed for wheezing or shortness of breath Assessment & Plan (03/19/2025 3:51 PM CDT): Orders: CBC with auto differential; Future napuzzthox-olgmwsyk-blneqazqvn (BREZTRI) 160-9-4.8 mcg/actuation inhaler; Inhale 2 puffs 2 (two) times a day Assessment & Plan (01/12/2025 2:34 PM CDT): No increased wokr of breathing. PRN albuterol and will follow response. Resolved Problems Problem Noted Date Diagnosed Date Resolved Date Headache, worsening 03/25/2025 04/12/20 25 Assessment & Plan (04/12/2025 10:56 AM CDT): Assessment & Plan (03/25/2025 7:05 PM CDT): Orders: CT Head WO Contrast; Future ibuprofen (ADVIL,MOTRIN) 800 mg tablet; Take 1 tablet (800 mg total) by mouth 3 (three) times a day Derangement of knee 03/19/2025 04/12/20 25 Pain in limb 03/19/2025 03/19/2025 Severe obesity 01/12/2025 03/19/2025 Assessment & Plan (01/12/2025 2:33 PM CDT): Encourage 150min/week aerobic exericse. Healthy food choices. Prostate cancer screening 01/12/2025 Assessment & Plan (01/12/2025 2:34 PM CDT): PSA ordered and epnding. WIll follow response. BMI 36.0-36.9,adult 01/12/2025 03/19/20 25 Skin tag 03/22/2024 04/12/2025 Pain in joint of right shoulder 04/11/2023 04/12/2025 Tendinitis of right rotator cuff 04/11/2023 03/19/2025 Arthralgia of right knee 12/10/2022 Pain of both hip joints 12/10/202202/26 BMI 34.0-34.9,adult 01/23/2022 03/19/20 25 Right elbow pain 01/09/2022 03/19/2025 Right hip pain 01/09/2022 03/19/2025 Encounter to establish care 10/10/2021 03/19/2025 Assessment & Plan (10/10/2021 1:15 PM [employer]): Retrieve records from previous pcp for review Need for influenza vaccination 10/10/2021 04/12/2025 Hand pain, left 10/10/2021 03/19/2025 Assessment & Plan (10/10/2021 1:14 PM [employer]): Xray left hand, will notify him of results as they are available Advised ortho referral - he wants to await xray results first Screening PSA (prostate specific antigen) 10/10/2021 03/19/2025 Assessment & Plan (10/10/2021 1:13 PM [employer]): labs entered, will notify patient of results as available Personal history of fall 10/10/2021 Assessment & Plan (10/10/2021 1:14 PM [employer]): Discussed mechanism of action, prevention Loss of taste 10/10/2021 03/19/2025 Assessment & Plan (10/10/2021 1:14 PM [employer]): Advised referral to ent, he declines at this time Mass of right foot 04/17/2018 Low back pain 06/26/2016 03/19/2025 Overview (01/31/2019): acute on chronic, sparing vicodin use Other depressive episodes 06/26/2016 Overview (01/31/2019): controlled Pain in left shoulder 06/26/20162024 Overview (01/31/2019): [facility], old surgery Encounters Date Type Department Care Team Description 05/27/2025 Documentation [facility] Primary Care at [address] [phone] Raiza Vidal NP 05/06/2025 Results Follow-Up [facility] Primary Care at [address] [phone] Raiza Vidal NP MRI Lumbar Spine WO Contrast 05/05/2025 Orders Only [facility] Medical [facility] Primary Care at [address] [phone] Raiza Vidal NP Chronic radicular lumbar pain 04/12/2025 11:02 AM CDT - 04/12/2025 11:59 PM CDT Hospital Encounter [address] [address] Type 2 diabetes mellitus with hyperlipidemia (HCC) Discharge Disposition: Discharge to home or self care 04/12/2025 11:00 AM CDT Lab [facility] Outpatient Lab at [address] [phone] 04/12/2025 10:00 AM CDT Office Visit [facility] Primary [facility] at [address] [phone] Raiza Vidal NP Mixed hyperlipidemia (Primary Dx); Headache, worsening; Essential hypertension; Hypertension associated with type 2 diabetes mellitus (HCC); Type 2 diabetes mellitus with hyperlipidemia (HCC); Severe obesity (BMI 35.0-39.9) with comorbidity (HCC); Primary insomnia; Mixed simple and mucopurulent chronic bronchitis (HCC); Episode of recurrent major depressive disorder, unspecified depression episode severity; Gastroesophageal reflux disease without esophagitis; Chronic frontal sinusitis; Seasonal allergic rhinitis due to pollen; Neuropathy; Encounter for abdominal aortic aneurysm screening 04/12/2025 Telephone [facility] Primary Care at [address] [phone] Raiza Vidal NP PA for Diclofenac Sodium 1% gel 04/12/2025 Orders Only [facility] Primary Care at [address] [phone] Raiza Vidal NP Chronic radicular lumbar pain (Primary Dx); Essential hypertension; Episode of recurrent major depressive disorder, unspecified depression episode severity 04/01/2025 Results Follow-Up [facility] Primary Care at [address] [phone] Theresa Rai NP Hemoglobin A1c 03/31/2025 12:35 PM CDT Ancillary Procedure [facility] at [address] [phone] Acute pain of right knee 03/31/2025 12:30 PM CDT Ancillary Procedure [facility] at [address] [phone] Acute pain of right knee 03/31/2025 12:30 PM CDT Office Visit [facility] at [address] [phone] Blaire Ruano PA Acute pain of right knee (Primary Dx); Acute pain of right shoulder; Fall, initial encounter 03/31/2025 12:15 PM CDT Lab [facility] Outpatient Lab at [address] [phone] 03/31/2025 12:05 PM CDT - 03/31/2025 11:59 PM CDT Hospital Encounter [address] [address] Elevated glucose Discharge Disposition: Discharge to home or self care 03/31/2025 Results Follow-Up [facility] Medical [facility] at [address] [phone] Blaire Ruano PA XR Shoulder Right 2+ Vw, XR Knee Right 3 Vw 03/25/2025 Orders Only [facility] Care at [address] [phone] Raiza Vidal NP Headache, worsening (Primary Dx) 03/24/2025 Orders Only [facility] Care at [address] [phone] Paula Garcia NP Elevated glucose (Primary Dx) 03/23/2025 Results Follow-Up [facility] Primary Care at [address] [phone] Raiza Vidal NP JARRETT ab ql w/rflx to JARRETT qn, Rheumatoid factor, Thyroid Function [place], Additional followed-up results: 6 03/19/2025 4:00 PM CDT Lab [facility] Lab at [address] [phone] 03/19/2025 3:57 PM CDT - 03/19/2025 11:59 PM CDT Hospital Encounter [address] [address] Rheumatoid arthritis involving multiple sites with positive rheumatoid factor (HCC); Screening for thyroid disorder; Special screening, prostate cancer; Hyperlipidemia, unspecified hyperlipidemia type; Essential hypertension; Chronic bronchitis, unspecified chronic bronchitis type (HCC) Discharge Disposition: Discharge to home or self care 03/19/2025 3:00 PM CDT Office Visit [facility] Care at [address] [phone] Raiza Vidal NP Chronic bronchitis, unspecified chronic bronchitis type (HCC) (Primary Dx); Essential hypertension; Hyperlipidemia, unspecified hyperlipidemia type; Rheumatoid arthritis involving multiple sites with positive rheumatoid factor (HCC); Screening for thyroid disorder; Special screening, prostate cancer; Hernia of abdominal wall; Headache, worsening; Neck pain 03/18/2025 Nurse Triage [facility] [address] [place] [address] Wild Lemus MD from Last 3 Months Immunizations Immunization Administration Dates Next Due Influenza LAIV (Nasal) 06/25/2023(Deferred: Hilaria ent Refused) Influenza, Quad, Adjuvantate d, Intramuscular 10/07/2023 Influenza, Quadrivalent, Ana María l Culture-based MDCK, Preservative Free, Antibiotic Free, Intramuscular 09/18/2022 Influenza, Quadrivalent, Spl it, Preservative Free, Intramuscular 10/10/2021,08/24/2020 Influenza, Unspecified 11/05/2023(Deferr ed: Patient Refused),10/28/2022(Deferred: Patient Refused) [employer] ([employer]) SARS-CoV-2 Vaccination 09/27/2021 Tdap 05/29/2023 Surgical History Surgery Date Site/Laterality Comments SHOULDER SURGERY 10/28/1978 - 10/27/1979 Left SHOULDER SURGERY 10/28/2023 - 10/27/2024 Right Medical History Medical History Date Comments Hypertension Hyperlipidemia Vertigo Arthritis GERD (gastroesophageal reflux disease) Headache, worsening 03/25/2025 Skin tag 03/22/2024 Family History Medical History Relation Name Comments Alzheimer's disease Father Hyperlipidemia Father Hypertension Father COPD Maternal Grandmother Arthritis Mother Hypertension Mother Siblings - Mental Illness Other Relation Name Status Comments Father Maternal Grandmother Mother Other Social History Tobacco Use Types Packs/Day Years Used Date Smoking Tobacco: Former Cigarettes 2 014 - 1971 Smokeless Tobacco: Never Tobacco Cessation:Counseling Given: Not Answered Alcohol Use Standard Drinks/Week Comments Yes 0 [...] on file Legal Sex Male 1:59 AM [employer] Gender Identity Male 12/18/2022 11:44 AM [employer] Sexual Orientation Not on file 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, [employer]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 Not on file Not on file Not on file Obstetrics History Last Filed Vital Signs Vital Sign Reading Time Taken Comments Blood Pressure 132/86 04/12/2025 9:53 AM CDT Pulse 64 04/12/2025 9:53 AM CDT Temperature 36.4 C (97.6 F) 04/12/2025 9:53 AM CDT Respiratory Rate 16 04/12/2025 9:53 AM CDT Oxygen Saturation 96% 04/12/2025 9:53 AM CDT Inhaled Oxygen Concentration - - Weight 104.8 kg (231 lb) 04/12/2025 9:53 AM CDT Height 167.6 cm (5' 6) 04/12/2025 9:53 AM CDT Body Mass Index 37.28 04/12/2025 9:53 AM CDT Plan of Treatment Health Maintenance Due Date Last Done Comments Dilated Eye Exam 1958 Foot Exam 1958 Pneumococcal vaccine 65+ (1 of 2 - PCV) 1977 Zoster Vaccine (1 of 2) 2008 Abdominal Aortic Aneurysm (AAA) Screen 2023 02/07/2022, 06/12/2016 Well Visit 65+ 2023 Influenza Vaccine (#1) 2025 , 09/18/2022, 10/10/2021, Additional history exists Hemoglobin A1C 10/12/2025 04/12/2025, 03/31/2025 Lipid Panel 03/19/2026 03/19/2025, 01/0 06/2024, 06/25/2023, Additional history exists eGFR 03/19/2026 03/19/2025, 06/2024, 06/25/2023, Additional history exists Albumin Creatinine Ratio, Urine 04/12/2026 04/12/2025 Covid-19 Vaccine ( season) 2026 11/27/2021, 09/27/2021, 02/24/2021 Postponed from 06/28/2024 (Patient declined, but will receive in the future) Depression Screening 04/12/2026 04/12/2025, 03/19/2025, 01/12/2025, Additional history exists Fall Risk Assessment 04/12/2026 04/12/2025, 03/19/2025, 01/12/2025, Additional history exists Prostate Cancer Screening-PSA 03/19/2027 03/19/2025, 02/13/2023, 11/14/2021, Additional history exists Colon Cancer Screening-Colonoscopy 06/01/2029 06/01/2019 DTaP/Tdap/Td Vaccine (2 - Td or Tdap) 05/29/2033 05/29/2023 Colon Cancer Screening-CT Colonography Discontinued 06/01/2019 Colon Cancer Screening-DNA Stool Discontinued 06/01/2019 Colon Cancer Screening-FIT Discontinued 06/01/2019 Colon Cancer Screening-Sigmoidoscopy Discontinued 06/01/2019 Hepatitis C Screening Completed 01/23/2022 Hepatitis B Screening Discontinued Procedures Procedure Name Priority Date/Time Associated Diagnosis Comments MRI LUMBAR SPINE WO CONTRAST Schedule Routine, Read Routine (OP Routine) 04/26/2025 Chronic radicular lumbar pain HEMOGLOBIN A1C Routine 04/12/2025 11:02 AM CDT Type 2 diabetes mellitus with hyperlipidemia (HCC) ALBUMIN CREATININE RATIO, URINE Routine 04/12/2025 11:02 AM CDT Type 2 diabetes mellitus with hyperlipidemia (HCC) XR SHOULDER RIGHT 2 OR MORE VIEWS Schedule THA, Read THA (Appt Today, Awaiting Results) 03/31/2025 12:48 PM CDT Acute pain of right knee XR KNEE RIGHT 3 VIEWS Schedule THA, Read THA (Appt Today, Awaiting Results) 03/31/2025 12:48 PM CDT Acute pain of right knee HEMOGLOBIN A1C Routine 03/31/2025 12:05 PM CDT Elevated glucose EGFR Routine 03/19/2025 3:57 PM CDT Essential hypertension DIFFERENTIAL AUTO Routine 03/19/2025 3:5 7 PM CDT Chronic bronchitis, unspecified chronic bronchitis type (HCC) Rheumatoid arthritis involving multiple sites with positive rheumatoid factor (HCC) CBC WITH AUTO DIFFERENTIAL Routine 03/19/2025 3:57 PM CDT Chronic bronchitis, unspecified chronic bronchitis type (HCC) Rheumatoid arthritis involving multiple sites with positive rheumatoid factor (HCC) COMPREHENSIVE METABOLIC PANEL Routine 03/19/2025 3:57 PM CDT Essential hypertension LIPID PANEL Routine 03/19/2025 3:57 PM CDT Hyperlipidemia, unspecified hyperlipidemia type PSA SCREEN Routine 03/19/2025 3:57 PM CDT Special screening, prostate cancer THYROID FUNCTION CASCADE Routine 03/19/2025 3:57 PM CDT Screening for thyroid disorder RHEUMATOID FACTOR Routine 03/19/2025 3:5 7 PM CDT Rheumatoid arthritis involving multiple sites with positive rheumatoid factor (HCC) JARRETT QUALITATIVE WITH REFLEX TO JARRETT QUANTITATIVE Routine 03/19/2025 3:57 PM CDT Rheumatoid arthritis involving multiple sites with positive rheumatoid factor (HCC) CT ABDOMEN PELVIS WO CONTRAST Schedule Routine, Read Routine (OP Routine) 02/07/2022 RUQ pain HEPATITIS PANEL, ACUTE Routine 01/23/2022 4:20 PM CDT RUQ pain HM COLONOSCOPY Routine 06/01/2019 from Last 3 Months or Most Recently Relevant to Health Maintenance Results * MRI Lumbar Spine WO Contrast (04/26/2025) Anatomical Region Laterality Modality Spine N/A Magnetic Resonan ce 04/26/2025 Raiza Vidal MANAGER OPERATIONS IMG MRI PROCEDURES Final Resu lt * Albumin Creatinine Ratio, Urine (04/12/2025 11:02 AM CDT) Pathologist [facility] Albumin Ur <12.0 mg/L Comment: Interpretive Data No reference range established. Current interpretive data was last revised 2019. Creatinine Ur 30.8 mg/dL KAROL Comment: Interpretive Data No reference range established. Current interpretive data was last revised 2019. Albumin Creatinine Ratio, Ur See Comment 1 - 29 KAROL Comment:Unable to calculate Urine 04/12/2025 11:0 2 AM CDT 04/12/2025 1:53 PM CDT Raiza Vidal MANAGER OPERATIONS LAB URINE ORDERABLES Final Re sult Performing Organization Address [facility] Co de Phone Number SANFORDJOSE ENRIQUE MURO [address] [place], [place] [id number] * (ABNORMAL) Hemoglobin A1c (04/12/2025 11:02 AM CDT) Pathologist [facility] Hgb A1C 8.0(H) 4.0 - 5.6 % Estimated Average Glucose 183 mg/dL KAROL Comment: The ADA recommends reporting an estimated Average Glucose (eAG) with all Hemoglobin A1c results using the equation derived from a study of 507 normal and diabetic adults. Minority populations were underrepresented and children were not included. (Diabetes Care 31:0852-7991, 2008). The eAG is not equivalent to a fasting glucose. Blood 04/12/2025 11:0 2 AM CDT 04/12/2025 1:53 PM CDT Raizaleah Vidal MANAGER OPERATIONS LAB BLOOD ORDERABLES Final Re sult Performing Organization Address [facility]/ZIP Co de Phone Number SANFORDJOSE ENRIQUE MURO [address] [place] [address] * XR Shoulder Right 2+ Vw (03/31/2025 12:48 PM CDT) Anatomical Region Laterality Modality Upper Extremities, Shoulder Right Digi indra Radiography 03/31/2025 4:28 PM CDT Narrative 03/31/2025 4:30 PM CDT EXAM DESCRIPTION: XR SHOULDER RIGHT 2 OR MORE VIEWS REASON FOR STUDY: fall Pt complains of shoulder pain after falling x 1 week ago. Prior rotator cuff surgery TECHNIQUE: 4 radiographic view(s) of the right shoulder . COMPARISON: 03/16/2023 FINDINGS: BONES/JOINTS: There is no acute fracture, malalignment or osseous abnormality. 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 Interval postsurgical changes of resection of the distal clavicle. SOFT TISSUES: Within normal limits. IMPRESSION: No acute osseous abnormality. THIS IS AN ELECTRONICALLY VERIFIED FINAL REPORT 03/31/2025 4:30 PM - Electronically signed by Eulalio Henry M.D. RW T: Report ID: [id number] Reading Location: [id number] Procedure Note Eulalio Henry MD - 03/31/2025 EXAM DESCRIPTION: XR SHOULDER RIGHT 2 OR MORE VIEWS REASON FOR STUDY: fall Pt complains of shoulder pain after falling x 1 week ago. Prior rotatorcuff surgery TECHNIQUE: 4 radiographic view(s) of the right shoulder . COMPARISON: 03/16/2023 FINDINGS: BONES/JOINTS: There is no acute fracture, malalignment orosseous abnormality. 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 SOFT TISSUES: Within normal limits. IMPRESSION: No acute osseous abnormality. THIS IS AN ELECTRONICALLY VERIFIED FINAL REPORT 03/31/2025 4:30 PM - Electronically signed by Eulalio Henry M.D. RW T: Report ID: [id number] Reading Location: [id number] Blaire ARCHER IMG XR PROCEDURES Final Result * XR Knee Right 3 Vw (03/31/2025 12:48 PM CDT) Anatomical Region Laterality Modality Lower Extremities, Knee Right Digital Radiography 03/31/2025 4:30 PM CDT Narrative 03/31/2025 4:30 PM CDT EXAM DESCRIPTION: XR KNEE RIGHT 3 VIEWS REASON FOR STUDY: fall Pt complains of generalized knee pain after falling x 1 week ago. No prior fx or surgery TECHNIQUE: 3 radiographic view(s) of the right knee weight-bearing . COMPARISON: None FINDINGS: BONES/JOINTS: There is no acute fracture, malalignment or osseous abnormality. Mild tricompartmental osteoarthritis. No joint effusion. SOFT TISSUES: Within normal limits. IMPRESSION: Mild osteoarthritis. THIS IS AN ELECTRONICALLY VERIFIED FINAL REPORT 03/31/2025 4:30 PM - Electronically signed by Eulalio Henry M.D. RW T: Report ID: [id number] Reading Location: [id number] Procedure Note Eulalio Henry MD - 03/31/2025 EXAM DESCRIPTION: XR KNEE RIGHT 3 VIEWS REASON FOR STUDY: fall Pt complains of generalized knee pain after falling x 1 week ago. No priorfx or surgery TECHNIQUE: 3 radiographic view(s) of the right knee weight-bearing . COMPARISON: None FINDINGS: BONES/JOINTS: There is no acute fracture, malalignment orosseous abnormality. Mild tricompartmental osteoarthritis. No joint effusion. SOFT TISSUES: Within normal limits. IMPRESSION: Mild osteoarthritis. THIS IS AN ELECTRONICALLY VERIFIED FINAL REPORT 03/31/2025 4:30 PM - Electronically signed by Eulalio Henry M.D. RW T: Report ID: [id number] Reading Location: [id number] Blaire ARCHER IMG XR PROCEDURES Final Result * (ABNORMAL) Hemoglobin A1c (03/31/2025 12:05 PM CDT) Hgb A1C 8.2(H) 4.0 - 5.6 % Estimated Average Glucose 189 mg/dL KAROL MURO Comment: The ADA recommends reporting an estimated Average Glucose (eAG) with all Hemoglobin A1c results using the equation derived from a study of 507 normal and diabetic adults. Minority populations were underrepresented and children were not included. (Diabetes Care 31:9725-6152, 2008). The eAG is not equivalent to a fasting glucose. Blood 03/31/2025 12:0 5 PM CDT 03/31/2025 6:16 PM CDT Paula Garcia MANAGER OPERATIONS LAB BLOOD ORDERABLES Final Re sult Performing Organization Address [facility] Co de Phone Number KAROL MURO [address] Department [place] [address] * JARRETT ab ql w/rflx to JARRETT qn (03/19/2025 3:57 PM CDT) JARRETT Negative Comment: Interpretive Data Normal range for JARRETT Qualitative Antibody = Negative. 1. JARRETT is performed using indirect immunofluorescence against HEp-2 cells 2. JARRETT titers are performed on all positive qualitative results. 3. A significantly positive AJRRETT result is defined as a positive nuclear fluorescence at a titer of 1:80 or greater. 4. 15% of normal people above age 65 have significantly positive JARRETT results. 5% or less of normal people age 65 or under have significantly positive JARRETT results. Current interpretive data was last revised on 2020. Testing performed by: [facility], [address], [place]., [address] Blood 03/19/2025 3:57 PM CDT 03/22/2025 7:47 PM CDT us Raiza Vidal MANAGER OPERATIONS LAB BLOOD ORDERABLES Final Re sult Performing Organization Address City/[facility]/ZIP Co de Phone Number KAROL MURO [address] [place] [address] * eGFR (03/19/2025 3:57 PM CDT) eGFR >90 >=60 mL/min/1. 73 m2 Comment: Interpretive Data Reference Interval Normal >/= 90 mL/min/1.73m2 Mildly decreased* 60 - 89 mL/min/1.73m2 Mildly to moderately decreased 45 - 59 mL/min/1.73m2 Moderately to severely decreased 30 - 44 mL/min/1.73m2 Severely decreased 15 - 29 mL/min/1.73m2 Kidney Failure < 15 mL/min/1.73m2 *Relative to young adult level Estimated glomerular filtration rate is determined by the 2020 CKD-EPI equation recommended by the National Kidney Foundation (A Unifying Approach to GFR Estimation: Recommendations of the NKF-ASK Task Force on Reassessing the Inclusion of Race in Diagnosing Kidney Disease, JASN 2020). The CKD-EPI equation should not be used for patients with unstable renal function and has not been validated in children and those over 70. Current interpretive data was last reviewed 2021. Blood 03/19/2025 3:57 PM CDT 03/19/2025 9:59 PM CDT Raiza Vidal NP LAB BLOOD ORDERABLES Final Re sult [facility] [address] Department [place] [address] * Differential, auto (03/19/2025 3:57 PM CDT) Neutrophil abs 4.26 1.50 - 6.50 K/cumm Imm gran abs 0.06 0.00 - 0.10 K/cumm [facility] Lymphocyte abs 2.84 0.80 - 3.30 K/cumm [facility] Monocyte abs 0.48 0.20 - 0.80 K/cumm [facility] Eosinophil abs 0.19 0.00 - 0.50 K/cumm [facility] Basophil abs 0.06 0.00 - 0.10 K/cumm [facility] Neutrophil pct 53.9 % [facility] Comment: Interpretive Data Percent cell count reference ranges are not reported, since discordance with absolute values may lead to misinterpretation of CBC data. Current Interpretive Data was last revised on 2018. Imm gran pct 0.8 % KAROL Comment: Interpretive Data Percent cell count reference ranges are not reported, since discordance with absolute values may lead to misinterpretation of CBC data. Current Interpretive Data was last revised on 2018. Lymphocyte pct 36.0 % CERNER Comment: Interpretive Data Percent cell count reference ranges are not reported, since discordance with absolute values may lead to misinterpretation of CBC data. Current Interpretive Data was last revised on 2018. Monocyte pct 6.1 % [facility] Comment: Interpretive Data Percent cell count reference ranges are not reported, since discordance with absolute values may lead to misinterpretation of CBC data. Current Interpretive Data was last revised on 2018. Eosinophil pct 2.4 % CERNER Comment: Interpretive Data Percent cell count reference ranges are not reported, since discordance with absolute values may lead to misinterpretation of CBC data. Current Interpretive Data was last revised on 2018. Basophil pct 0.8 % CERNER Comment: Interpretive Data Percent cell count reference ranges are not reported, since discordance with absolute values may lead to misinterpretation of CBC data. Current Interpretive Data was last revised on 2018. Blood 03/19/2025 3:57 PM CDT 03/19/2025 9:42 PM CDT Raiza Therien MANAGER OPERATIONS LAB BLOOD ORDERABLES Final Re sult Performing Organization Address City/[facility] Co de Phone Number [facility] [address] [place] [address] * Thyroid Function [place] (03/19/2025 3:57 PM CDT) Pathologist [facility] TSH 1.88 0.30 - 4.20 mcIUnit/mL Blood 03/19/2025 3:57 PM CDT 03/19/2025 9:42 PM CDT [employer] MANAGER OPERATIONS LAB BLOOD ORDERABLES Final Re sult Performing Organization Address City/[facility] Co de Phone Number [facility] [address] [facility] [place] [address] * PSA screen (03/19/2025 3:57 PM CDT) PSA-Total 0.49 <=5.40 ng/mL Comment: Interpretive Data AGE SEX REFERENCE INTERVAL 0 minutes-150 years Female None 0 minutes-49 years Male None 50-59 years Male 0-3.90 60-69 years Male 0-5.40 70-79 years Male 0-6.20 80-150 years Male 0-6.20 The Shannon PSA Total assay procedure was used. Results from different manufacturers or methods may not be comparable. Serial testing should be performed using the same method. Current interpretive data last revised 22. Blood 03/19/2025 3:57 PM CDT 03/19/2025 9:42 PM CDT Raiza iVdal NP LAB BLOOD ORDERABLES Final Re sult [facility] [address] Department [place] [address] * (ABNORMAL) CBC with auto differential (03/19/2025 3:57 PM CDT) Pathologist [facility] WBC 7.89 3.80 - 9.90 K/cumm Hgb 14.2 13.0 - 17.5 g/dL [facility] Hct 44.6 38.9 - 50.3 % [facility] Plt 227 150 - 400 K/cumm [facility] MPV 10.2 9.1 - 12.3 fL [facility] RBC 5.15 4.30 - 5.80 M/cumm [facility] MCV 86.6 81.3 - 96.4 fL [facility] MCH 27.6 27.1 - 33.3 pg [facility] MCHC 31.8(L) 32.3 - 35.7 g/dL [facility] RDW CV 12.7 11.1 - 14.9 % [facility] RDW SD 40.0 35.7 - 48.1 fL [facility] NRBC abs 0.00 0.00 - 0.01 K/cumm [facility] Blood 03/19/2025 3:57 PM CDT 03/19/2025 9:42 PM CDT [employer] MANAGER OPERATIONS LAB BLOOD ORDERABLES Final Re sult Performing Organization Address City/[facility] Co de Phone Number KAROL MURO [address] [place] [address] * Rheumatoid factor (03/19/2025 3:57 PM CDT) Rheumatoid factor, quant <10 <=15 IUnits/mL Blood 03/19/2025 3:57 PM CDT 03/19/2025 9:42 PM CDT Raiza [employer] MANAGER OPERATIONS LAB BLOOD ORDERABLES Final Re sult Performing Organization Address [facility] de Phone Number KAROL MURO [address] [place] [address] * (ABNORMAL) Lipid panel (03/19/2025 3:57 PM CDT) Pathologist [facility] Cholesterol 155 30 - 199 mg/dL Comment: Interpretive Data Ages < or = 19 years Acceptable: <170 mg/dL Borderline high: 170-199 mg/dL High: >or= 200 mg/dL Ages > or = 20 years Desirable: <200 mg/dL Borderline high: 200-239 mg/dL High: >or= 240 mg/dL Literature References: 1. Expert Panel on Integrated Guidelines for Cardiovascular Health and Risk Reduction in Children and Adolescents. Pediatrics 2011;128:S213 2. NCEP Expert Panel. Circulation 2004;110:227 Current Interpretive Data was last revised on 2018. Triglycerides 322(H) <=149 mg/dL KAROL MURO Comment: Interpretive Data Ages < or = 9 years Acceptable: <75 mg/dL Borderline high: 75-99 mg/dL High: >or= 100 mg/dL Ages 10 to 20 years Acceptable: <90 mg/dL Borderline high: 90-129 mg/dL High: >or= 130 mg/dL Ages > or = 20 years Desirable: <150 mg/dL Borderline high: 150-199 mg/dL High: 200-499 mg/dL Very high: >or= 499 mg/dL Literature References: 1. Expert Panel on Integrated Guidelines for Cardiovascular Health and Risk Reduction in Children and Adolescents. Pediatrics 2011;128:S213 2. NCEP Expert Panel. Circulation 2004;110:227 Current Interpretive Data was last revised on 2018. HDL 26(L) >=40 mg/dL KAROL MURO Comment: Interpretive Data Ages < or = 19 years Acceptable: >45 mg/dL Borderline low: 40-45 mg/dL Low: <40 mg/dL Ages > or = 20 years Desirable: >or= 60 mg/dL Low: <40 mg/dL Literature References: 1. Expert Panel on Integrated Guidelines for Cardiovascular Health and Risk Reduction in Children and Adolescents. Pediatrics 2011;128:S213 2. NCEP Expert Panel. Circulation 2004;110:227 Current Interpretive Data was last revised on 2018. LDL, calculated 77 <=129 mg/dL KAROL MURO Comment: Interpretive Data Ages < or = 19 years Acceptable: <110 mg/dL Borderline high: 110-129 mg/dL High: >or= 130 mg/dL Ages > or = 20 years Optimal: <100 mg/dL Near optimal: 100-129 mg/dL Borderline high: 130-159 mg/dL High: >160 mg/dL Calculated using the Quoc LDL-C estimating equation. This equation was implemented on 2024. Prior to this date LDL-C was estimated using the Friedewald equation. Literature References: 1. Expert Panel on Integrated Guidelines for Cardiovascular Health and Risk Reduction in Children and Adolescents. Pediatrics 2011;128:S213 2. NCEP Expert Panel. Circulation 2004;110:227 3. Quoc Ellis et al. SIMÓN Cardiol. 2019February 25;5(5):540-548. doi: 10.1001/jamacardio.2020.0013 Current Interpretive Data was last revised on 2024. Non-HDL Cholesterol 129 mg/dL KAROL MURO Comment: Interpretive Data Ages < or = 19 years Acceptable: <120 mg/dL Borderline high: 120-144 mg/dL High: >145 mg/dL Ages > or = 20 years When triglycerides are >200 mg/dL, Non-HDL cholesterol is a secondary target of therapy with treatment goals that are 30 mg/dL greater than the LDL cholesterol target. Literature References: 1. Expert Panel on Integrated Guidelines for Cardiovascular Health and Risk Reduction in Children and Adolescents. Pediatrics 2011;128:S213 2. NCEP Expert Panel. Circulation 2004;110:227 Current Interpretive Data was last revised on 2018. Chol/HDL ratio 6 [facility] Blood 03/19/2025 3:57 PM CDT 03/19/2025 9:42 PM CDT Narrative [facility] - 03/19/2025 10:23 PM CDT Has the patient been fasting for 8 hours or more?->Yes us Raiza Vidal MANAGER OPERATIONS LAB BLOOD [place] [address] [place] [address] * (ABNORMAL) Comprehensive metabolic panel (03/19/2025 3:57 PM CDT) Sodium 134(L) 135 - 145 mmol/L Potassium, pl 3.9 3.3 - 4.9 mmol/L [facility] Chloride 96(L) 97 - 110 mmol/L [facility] CO2 26 22 - 32 mmol/L [facility] Anion gap 12 2 - 15 mmol/L [facility] BUN 10 6 - 25 mg/dL [facility] Creatinine 0.78(L) 0.80 - 1.30 mg/dL [facility] Glucose 149 70 - 199 mg/dL [facility] Comment: Interpretive Data Fasting glucose >/= 126 mg/dl is diagnostic for diabetes. Fasting is defined as no caloric intake for at least 8 hours. Fasting glucose between 100 mg/dl to 125 mg/dl is diagnostic of prediabetes. In a patient with classic symptoms of hyperglycemia or hyperglycemic crisis, a random glucose >/= 200 mg/dl is diagnostic for diabetes. In the absence of unequivocal hyperglycemia, results should be confirmed by repeat testing. The classification and Diagnosis of Diabetes Diabetes Care 202; 46: S19-S40. Current interpretive data was last revised 2022. Calcium 9.4 8.5 - 10.3 mg/dL [facility] Bilirubin, total 0.3 0.1 - 1.2 mg/dL [facility] Protein, pl 6.9 6.5 - 8.5 g/dL [facility] Albumin 4.3 3.5 - 5.0 g/dL [facility] Alk phos 79 40 - 130 Units/L [facility] ALT 64(H) 7 - 55 Units/L [facility] AST 49 10 - 50 Units/L [facility] Blood 03/19/2025 3:57 PM CDT 03/19/2025 9:42 PM CDT us Raiza Vidal MANAGER OPERATIONS LAB BLOOD ORDERABLES Final Re sult KAROL [address] Department [place] [address] * CT Abdomen Pelvis WO Contrast (02/07/2022) Anatomical Region Laterality Modality Body N/A Computed Tomogra phy us Wild Lemus MD IMG CT PROCEDURES Final R esult * Hepatitis panel, acute (01/23/2022 4:20 PM CDT) Hep A IgM Nonreactive Nonreactive [facility] Comment: Interpretive Data: If Hep A IgM Ab is reported as Equivocal, a new sample should be drawn in two weeks for testing. Current interpretive data was last revised on 20. Hep B core IgM Nonreactive Nonreactive [facility] Comment: Interpretive Data If HepB Core IgM Ab is reported as Equivocal, a new sample should be drawn in two weeks for testing. Current interpretive data was last revised on 20. Hep C Ab Nonreactive Nonreactive [facility] Comment: Interpretive Data Nonreactive: Antibodies to HCV not detected. Does NOT exclude the possibility of recent exposure to HCV. Equivocal: Equivocal for HCV antibodies. Supplemental molecular testing will be automatically performed to determine infection status in accordance with current CDC screening recommendations. Reactive: Positive for HCV antibodies. This may represent current or past HCV infection. Supplemental molecular testing will be automatically performed to determine current infection status in accordance with current CDC screening recommendations. Interpretive data was last revised on 2020. HepBsAg Nonreactive Nonreactive [facility] Blood 01/23/2022 4:20 PM CDT 01/23/2022 6:35 PM CDT us Wild Lemus MD LAB MICROBIOLOGY - GENERA L ORDERABLES Final Result KAROL [address] Department [place] [address] * HM COLONOSCOPY (06/01/2019) Historical Provider HEALTH MAINTENANCE Edited Result - Final from Last 3 Months or Most Recently Relevant to Health Maintenance Insurance [employer] OOS ANTH ACCESS Member Subscriber Plan / Payer (Ef fective 2015-Present) Name:Alan Gavin Cheryl Member ID:[id number] Relation to Subscriber:Spouse Name:KARINA GAVIN Subscriber ID:[id number] Date of :1965 (Home) Address: [place] [address] Payer ID:[id number] (NAIC) Type:BC ALLIANCE Address: [facility] [id number] [id number] Care Teams Field Counsel Relationship Specialty Start Date End Date Raiza Vidal NP [address] [place] [address] PCP - General Internal Medicine 03/19/25
[2025-06-08 11:12] LABS: Anion Gap 8 mmol/L (4-12); Blood Urea Nitrogen 16 mg/dL (9-20); Calcium 9.7 mg/dL (8.4-10.2); Carbon Dioxide 26 mmol/L (22-30); Chloride 100 mmol/L (98-107); Estimated Glomerular Filt Rate > 60; Glucose 99 mg/dL (65-110); Potassium 3.8 mmol/L (3.4-5.0); Sodium 134 mmol/L (137-145)
== END 2025-06-08 10:19 | disposition home or self-care (01) ==
LOC: ANHSURGERY 10:23
PROVIDERS: Anesthesiology; PCP Nurse Practitioner; Visit Provider Surgery
DX: K43.9 Ventral hernia without obstruction or gangrene (principal); E11.9 Type 2 diabetes mellitus without complications; Z79.899 Other long term (current) drug therapy
CPT/HCPCS: 36415; 80048; 86850; 86900; 86901

== ENCOUNTER 2025-06-14 01:57 | Day surgery (SDC) | payer BC, SELFPAY ==
[2025-06-03 09:43] VITALS: BMI 33.5
--- NOTE | 2025-06-03 09:57 | PC.NURSE ---
Report to the Outpatient Waiting Room, entrance under the green pavilion located off [facility], at time __0600am on date __06/14/25 . Planned Procedure Time: ___0730am .? Time changes happen often and if your time is changed the preop area will call you the afternoon before. - You and your visitor will be asked to self-screen and do not enter if you have any COVID symptoms. Please call surgeon if you need to reschedule. - A mask is optional within the hospital at this time. Patients may have clear liquids (water, carbonated beverages, clear teas, apple juice) until 3 hours prior to surgery with a maximum of 20 ounces. - No food from midnight until time of surgery and no smoking, or chewing tobacco (or any form of nicotine). No chewing gum, candy or mints. (04:30am) Take only the following medications with a SIP of water on the morning of surgery: Gabapentin, Aripiprazole, Breztri Inhaler and Bring Albuteral Rescue Inhaler as well and use if needed DO NOT STOP ANY OF YOUR OTHER PRESCRIPTION MEDICATIONS PRIOR TO SURGERY EXCEPT THE FOLLOWING Hold all vitamins, herbs, probiotics and supplements for 3 days per anesthesiologist. Date of last dose is 06/10/25 Medications to discontinue per physician NONE Date to take last dose NONE Please no make-up, nail icelandic, hairspray, perfume, deodorant, or body powder the day of surgery.? No jewelry (including any body piercings) or valuables the day of surgery, leave them at home.? Please take a shower or bath the night before, or the morning of, surgery with an antibacterial soap ( GOLD DIAL) .? Wear comfortable, loose fitting clothing.? - Jewelry must be removed prior to entering the operating room.? Rings and piercings that are not removed may be cut off. - The hospital will not accept responsibility for valuables.? - Please leave all valuables, including medications, at home the day of surgery. If you are going home after surgery, a licensed limousine driver must drive you home.? - NO public transportation without another adult if you receive anesthesia. - We recommend that an adult stay with you for 24 hours following discharge. - We also recommend that you do not drive, make important decision, drink alcoholic beverages, or take any drugs that were not prescribed by your health care provider for at least 24 hours after your discharge time. Follow any additional instructions given to you from your surgeon. Telephone instructions given to _Patient and asked if any additional questions and then verbalized understanding. Patient advised to call surgeon office or pre surgery nurse liaison [phone] if any additional questions.
[2025-06-14] VITALS (14 sets, daily range): BP systolic 135–175; BP diastolic 68–101; PULSE 75–97; RESP 12–18; TEMP 36.4–37.4; O2SAT 90–96; BMI 33.5
--- OUTSIDE RECORDS SUMMARY | 2025-06-14 01:59 | XMS_ITS | Encounter Summary ---
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
--- OUTSIDE RECORDS SUMMARY | 2025-06-14 01:59 | XMS_ITS | Continuity of Care Document ---
Author Organization formerly [facility] Address [address] [place] [address] [facility] [address] [place] [address] Phone Care Team Providers Care Clay Miner Name Role Phone Kady Stewarthil Unavailable Unavailable Procedures Procedure Date Eye Exam, New Patient Advance Directives Directive Yes / No Effective Date File Name No Information Encounters Encounter Description Practice Location Reason(s) For Visit Diagnoses Date Provider Providers Copied on Encounter [facility], [address] [place] [address] [address], [place], [place], [id number], [place] tel:[phone] [facility] No Information [address] [facility] [address], [place], [address], [place]. tel:[phone] Family History Family Member Type Diagnosis Age At Onset No Information Payers Payer name Insurance type Covered alliance party ID Authoriza tion(s) No Information Social History Type Description Quantity Date Captured Comments Sex Male Smoking Status No Information Chief Complaint And Reason For Visit No Information Reason For Referral Reason For Referral No Information History Of Present Illness Encounter Date Complaint History Of Prese nt Illness No Information Functional Status Date Functional Assessmen t No Information Instructions Date Instruction Additional Infor mation No Information Assessments Type Assessment Date No Information Patient Care Teams Name Effective Dates (start - stop) Status Members No Information
--- OUTSIDE RECORDS SUMMARY | 2025-06-14 01:59 | XMS_ITS | Clinical Summary ---
Author Organization [facility] [address] [facility] Address [address] [place] [address] Care Team Providers Care Can Reforming Machine Operator Name Role Phone Raiza Vidal BRAULIO Primary Care Provider [phone] Allergies Active Allergy Reactions Criticality Noted Date [...] 16 mL 1 025 2024 Discontinued(R eorder) lancets miscIndications:T ype [...] with Ortho 05/[address] Guallpa in [place], [place]. Rheumatoid arthritis with positive rheumatoid fa ctor 10/10/2021 Assessment & Plan (03/19/2025 3:51 PM CDT): Orders: CBC with auto differential; Future Rheumatoid factor; Future JARRETT ab ql w/rflx to JARRETT qn; Future Assessment & Plan (01/12/2025 2:34 PM CDT): NO active synoviitis and will monitor response. Assessment & Plan (10/10/2021 1:13 PM ROR ENGINEER): Per patient history of - will retrieve [...] medication. Assessment & Plan (10/10/2021 1:15 PM ROR ENGINEER): Stable, continue medications same at this time [...] response. Assessment & Plan (10/10/2021 1:14 PM ROR ENGINEER): Fasting labs entered, will notify patient of results as available History of multiple concussions 10/10/2021 Assessment & Plan (10/10/2021 1:14 PM ROR ENGINEER): Advised referral to neuro, he declines at [...] daily Assessment & Plan (10/10/2021 1:15 PM ROR ENGINEER): Stable, continue medications same at this time Trigger middle finger of left hand 10/10/2021 Assessment & Plan (10/10/2021 1:13 PM ROR ENGINEER): Xray left hand, will notify him of [...] CDT): Orders: CBC with auto differential; Future nbrkfpkljh-ssfxqfdl-bcjilmlbxj (BREZTRI) 160-9-4.8 mcg/actuation inhaler; Inhale 2 puffs [...] knee 12/10/2022 Pain of both hip joints 12/10/2022 05/12/2024 BMI 34.0-34.9,adult 01/23/2022 03/19/20 25 Right elbow pain 01/09/2022 03/19/2025 Right hip pain 01/09/2022 03/19/2025 Encounter to establish care 10/10/2021 03/19/2025 Assessment & Plan (10/10/2021 1:15 PM ROR ENGINEER): Retrieve records from previous pcp for review Need for influenza vaccination 10/10/2021 04/12/2025 Hand pain, left 10/10/2021 03/19/2025 Assessment & Plan (10/10/2021 1:14 PM ROR ENGINEER): Xray left hand, will notify him of results as they are available Advised ortho referral - he wants to await xray results first Screening PSA (prostate specific antigen) 10/10/2021 03/19/2025 Assessment & Plan (10/10/2021 1:13 PM ROR ENGINEER): labs entered, will notify patient of results as available Personal history of fall 10/10/2021 Assessment & Plan (10/10/2021 1:14 PM ROR ENGINEER): Discussed mechanism of action, prevention Loss of taste 10/10/2021 03/19/2025 Assessment & Plan (10/10/2021 1:14 PM ROR ENGINEER): Advised referral to ent, he declines at this time Mass of right foot 04/17/2018 Low back pain 06/26/2016 03/19/2025 Overview (01/31/2019): acute on chronic, sparing vicodin use Other depressive episodes 06/26/2016 Overview (01/31/2019): controlled Pain in left shoulder 06/26/20162024 Overview (01/31/2019): senior care, old surgery Encounters Date Type Department Care Team Description 05/27/2025 Documentation [facility] Primary Care at [address] [phone] Raiza Vidal NP 05/06/2025 Results Follow-Up [facility] Primary Care at [address] [phone] Raiza Vidal NP MRI Lumbar Spine WO Contrast 05/05/2025 Orders Only [facility] Primary Care at [address] [phone] Raiza Vidal NP Chronic radicular lumbar pain 04/12/2025 11:02 AM CDT - 04/12/2025 11:59 PM CDT [place] [address] Type 2 diabetes mellitus with hyperlipidemia (HCC) Discharge Disposition: Discharge to home or self care 04/12/2025 11:00 AM CDT Lab [facility] Outpatient Lab at [address] [phone] 04/12/2025 10:00 AM CDT Office Visit [facility] Primary Care at [address] [phone] Raiza Vidal NP Mixed hyperlipidemia (Primary Dx); [...] for abdominal aortic aneurysm screening 04/12/2025 Telephone [facility] Primary Care at [address] [phone] Raiza Vidal NP PA for Diclofenac Sodium 1% gel 04/12/2025 Orders Only [facility] Primary Care at [address] [phone] Raiza Vidal NP Chronic radicular lumbar pain (Primary Dx); Essential hypertension; Episode of recurrent major depressive disorder, unspecified depression episode severity 04/01/2025 Results Follow-Up [facility] Primary Care at [address] [phone] Theresa Rai NP Hemoglobin A1c 03/31/2025 12:35 PM CDT Ancillary Procedure [facility] Imaging at [address] [phone] Acute pain of right knee 03/31/2025 12:30 PM CDT Ancillary Procedure [facility] Imaging at [address] [phone] Acute pain of right knee 03/31/2025 12:30 PM CDT Office Visit [facility] Convenient Care at [address] [phone] Blaire Ruano PA Acute pain of right knee (Primary Dx); Acute pain of right shoulder; Fall, initial encounter 03/31/2025 12:15 PM CDT Lab [facility] Outpatient Lab at [address] [phone] 03/31/2025 12:05 PM CDT - 03/31/2025 11:59 PM CDT Hospital Encounter [address] [address] Elevated glucose Discharge Disposition: Discharge to home or self care 03/31/2025 Results Follow-Up [facility] Care at [address] [phone] Blaire Ruano PA XR Shoulder Right 2+ Vw, XR Knee Right 3 Vw 03/25/2025 Orders Only [facility] Primary Care at [address] [phone] Raiza Vidal NP Headache, worsening (Primary Dx) 03/24/2025 Orders Only [facility] Primary Care at [address] [phone] Paula Garcia NP Elevated glucose (Primary Dx) 03/23/2025 Results Follow-Up [facility] Primary Care at [address] [phone] Raiza Vidal NP JARRETT ab ql w/rflx to JARRETT qn, Rheumatoid factor, Thyroid Function Nicollet, Additional followed-up results: 6 03/19/2025 4:00 PM CDT Lab [facility] Outpatient Lab at [address] [phone] 03/19/2025 3:57 PM CDT - 03/19/2025 11:59 PM CDT [place] [address] Rheumatoid arthritis involving multiple sites with positive rheumatoid factor (HCC); Screening for thyroid disorder; Special screening, prostate cancer; Hyperlipidemia, unspecified hyperlipidemia type; Essential hypertension; Chronic bronchitis, unspecified chronic bronchitis type (HCC) Discharge Disposition: Discharge to home or self care 03/19/2025 3:00 PM CDT Office Visit [facility] Primary Care at [address] [phone] Raiza Vidal NP Chronic bronchitis, unspecified chronic bronchitis type (HCC) (Primary Dx); Essential hypertension; Hyperlipidemia, unspecified hyperlipidemia type; Rheumatoid arthritis involving multiple sites with positive rheumatoid factor (HCC); Screening for thyroid disorder; Special screening, prostate cancer; Hernia of abdominal wall; Headache, worsening; Neck pain 03/18/2025 Nurse Triage [facility] [address] [phone] Wild Lemus MD from Last 3 Months Immunizations Immunization Administration Dates Next Due Influenza LAIV (Nasal) 06/25/2023(Deferred: Hilaria ent Refused) Influenza, Quad, Adjuvantate d, Intramuscular 10/07/2023 Influenza, Quadrivalent, Ana María l Culture-based MDCK, Preservative Free, Antibiotic Free, Intramuscular 09/18/2022 Influenza, Quadrivalent, Spl it, Preservative Free, Intramuscular 10/10/2021,08/24/2020 Influenza, Unspecified 11/05/2023(Deferr ed: Patient Refused),10/28/2022(Deferred: Patient Refused) [employer]com (J&J) SARS-CoV-2 Vaccination 09/27/2021 Tdap 05/29/2023 Surgical [...] Used Date Smoking Tobacco: Former Cigarettes 2 - 1971 Smokeless Tobacco: Never Tobacco Cessation:Counseling [...] on file Legal Sex Male 1:59 AM ROR ENGINEER Gender Identity Male 12/18/2022 11:44 AM ROR ENGINEER Sexual Orientation Not on file Occupation Industry [...] 06/25/2023, Additional history exists eGFR 03/19/2026 03/19/2025, 01/0 06/2024, 06/25/2023, Additional history exists Albumin Creatinine [...] Modality Spine N/A Magnetic Resonan ce 04/26/2025 us Raiza Vidal NP IMG MRI PROCEDURES Final Resu lt * Albumin Creatinine Ratio, Urine (04/12/2025 11:02 AM CDT) Albumin Ur <12.0 mg/L Comment: Interpretive Data No reference range established. Current interpretive data was last revised 2019. Creatinine Ur 30.8 mg/dL KAROL MURO Comment: Interpretive Data No reference range established. Current interpretive data was last revised 2019. Albumin Creatinine Ratio, Ur See Comment 1 - 29 KAROL Comment:Unable to calculate Urine 04/12/2025 11:0 2 AM CDT 04/12/2025 1:53 PM CDT Raiza Vidal RING CONDUCTOR LAB URINE ORDERABLES Final Re sult Performing Organization Address [facility] Phone Number KAROL [phone] [place] [address] * (ABNORMAL) Hemoglobin A1c (04/12/2025 11:02 AM CDT) Hgb A1C 8.0(H) 4.0 - 5.6 % Estimated Average Glucose 183 mg/dL KAROL Comment: The ADA recommends reporting an estimated Average Glucose (eAG) with all Hemoglobin A1c results using the equation derived from a study of 507 normal and diabetic adults. Minority populations were underrepresented and children were not included. (Diabetes Care 31:4898-6304, 2008). The eAG is not equivalent to a fasting glucose. Blood 04/12/2025 11:0 2 AM CDT 04/12/2025 1:53 PM CDT Raiza Bluff Warsliz RING CONDUCTOR LAB BLOOD ORDERABLES Final Re sult Performing Organization Address [facility] Phone Number KAROL [phone] [facility] [employer] [place] [address] * XR Shoulder Right 2+ Vw (03/31/2025 [...] Eulalio Henry M.D. RW T: Report ID: [id number] Reading Location: [id number] Procedure Note Eulalio Henry MD - 03/31/2025 [...] Eulalio Henry M.D. RW T: Report ID: [id number] Reading Location: [id number] Blaire ARCHER IMG XR PROCEDURES Final Result [...] 4:30 PM - Electronically signed by Eulalio ESPINO T: Report ID: [id number] Reading Location: [id number] Procedure Note Eulalio Henry MD - 03/31/2025 [...] 4:30 PM - Electronically signed by Eulalio ESPINO T: Report ID: [id number] Reading Location: [id number] Blaire ARCHER IMG XR PROCEDURES Final Result [...] and children were not included. (Diabetes Care 31:3992-4406, 2008). The eAG is not equivalent to a fasting glucose. Blood 03/31/2025 12:0 5 PM CDT 03/31/2025 6:16 PM CDT Paula Garcia NP LAB BLOOD ORDERABLES Final Re sult KAROL MURO [address] Department [place] [address] * JARRETT ab ql w/rflx to JARRETT qn (03/19/2025 3:57 PM CDT) JARRETT Negative Comment: Interpretive Data Normal range for JARRETT Qualitative Antibody = Negative. 1. JARRETT is performed using indirect immunofluorescence against HEp-2 cells 2. JARRETT titers are performed on all positive qualitative results. 3. A significantly positive JARRETT result is defined as a positive nuclear fluorescence at a titer of 1:80 or greater. 4. 15% of normal people above age 65 have significantly positive JARRETT results. 5% or less of normal people age 65 or under have significantly positive JARRETT results. Current interpretive data was last revised on 2020. Testing performed by: [facility], [address] [place]., [address] Blood 03/19/2025 3:57 PM CDT 03/22/2025 7:47 PM CDT Raiza Vidal NP LAB BLOOD ORDERABLES Final Re sult KAROL MURO [address] Department of [employer] [place] [address] * eGFR (03/19/2025 3:57 PM [...] 3:57 PM CDT 03/19/2025 9:59 PM CDT us Raiza Vidal NP LAB BLOOD ORDERABLES Final Re sult [facility] [address] Department [place] [address] * Differential, auto (03/19/2025 3:57 PM CDT) Neutrophil abs 4.26 1.50 - 6.50 K/cumm Imm gran abs 0.06 0.00 - 0.10 K/cumm [facility] Lymphocyte abs 2.84 0.80 - 3.30 K/cumm [facility] Monocyte abs 0.48 0.20 - 0.80 K/cumm [facility] Eosinophil abs 0.19 0.00 - 0.50 K/cumm [facility] Basophil abs 0.06 0.00 - 0.10 K/cumm [facility] Neutrophil pct 53.9 % [facility] Comment: Interpretive Data Percent cell count reference ranges are not reported, since discordance with absolute values may lead to misinterpretation of CBC data. Current Interpretive Data was last revised on 2018. Imm gran pct 0.8 % [facility] Comment: Interpretive Data Percent cell count reference ranges are not reported, since discordance with absolute values may lead to misinterpretation of CBC data. Current Interpretive Data was last revised on 2018. Lymphocyte pct 36.0 % [facility] Comment: Interpretive Data Percent cell count reference ranges are not reported, since discordance with absolute values may lead to misinterpretation of CBC data. Current Interpretive Data was last revised on 2018. Monocyte pct 6.1 % [facility] Comment: Interpretive Data Percent cell count reference ranges are not reported, since discordance with absolute values may lead to misinterpretation of CBC data. Current Interpretive Data was last revised on 2018. Eosinophil pct 2.4 % [facility] Comment: Interpretive Data Percent cell count reference ranges are not reported, since discordance with absolute values may lead to misinterpretation of CBC data. Current Interpretive Data was last revised on 2018. Basophil pct 0.8 % KAROL Comment: Interpretive Data Percent cell count reference ranges are not reported, since discordance with absolute values may lead to misinterpretation of CBC data. Current Interpretive Data was last revised on 2018. Blood 03/19/2025 3:57 PM CDT 03/19/2025 9:42 PM CDT [employer] RING CONDUCTOR LAB BLOOD ORDERABLES Final Re sult Performing Organization Address City/[facility]/ZIP Co de Phone Number KAROL [address] [place], [place] [phone] * Thyroid Function Nicollet (03/19/2025 3:57 PM CDT) TSH 1.88 0.30 - 4.20 mcIUnit/mL Blood 03/19/2025 3:57 PM CDT 03/19/2025 9:42 PM CDT [employer] RING CONDUCTOR LAB BLOOD ORDERABLES Final Re sult Performing Organization Address [facility] Co de Phone Number KAROL [phone] [facility] [employer] [facility] [place], [place] [id number] * PSA screen (03/19/2025 3:57 PM CDT) [...] PM CDT 03/19/2025 9:42 PM CDT Raiza Vidal RING CONDUCTOR LAB BLOOD ORDERABLES Final Re sult KAROL [address] Department of [employer] [place] [address] * (ABNORMAL) CBC with auto differential (03/19/2025 3:57 PM CDT) Pathologist [facility] WBC 7.89 3.80 - 9.90 K/cumm Hgb 14.2 13.0 - 17.5 g/dL [facility] Hct 44.6 38.9 - 50.3 % [facility] CH Plt 227 150 - 400 K/cumm [facility] CH MPV 10.2 9.1 - 12.3 fL [facility] RBC 5.15 4.30 - 5.80 M/cumm [facility] MCV 86.6 81.3 - 96.4 fL [facility] MCH 27.6 27.1 - 33.3 pg [facility] MCHC 31.8(L) 32.3 - 35.7 g/dL [facility] RDW CV 12.7 11.1 - 14.9 % [facility] CH RDW SD 40.0 35.7 - 48.1 fL [facility] NRBC abs 0.00 0.00 - 0.01 K/cumm [facility] Blood 03/19/2025 3:57 PM CDT 03/19/2025 9:42 PM CDT Raiza Vidal RING CONDUCTOR LAB BLOOD ORDERABLES Final Re sult KAROL [address] Department of [employer] [place] [address] * Rheumatoid factor (03/19/2025 3:57 PM CDT) Pathologist [facility] Rheumatoid factor, quant <10 <=15 IUnits/mL Blood 03/19/2025 3:57 PM CDT 03/19/2025 9:42 PM CDT us Raiza Vidal BRAULIO LAB BLOOD ORDERABLES Final Re sult KAROL MURO [address] Department [place] [address] * (ABNORMAL) Lipid panel (03/19/2025 3:57 PM CDT) Cholesterol 155 30 - 199 mg/dL Comment: [...] last revised on 2018. Chol/HDL ratio 6 KAROL Blood 03/19/2025 3:57 PM CDT 03/19/2025 9:42 PM CDT Narrative KAROL MURO - 03/19/2025 10:23 PM CDT Has the patient been fasting for 8 hours or more?->Yes Raiza Vidal NP LAB BLOOD ORDERABLES Final Re sult KAROL MURO [address] Department [place] [address] * (ABNORMAL) Comprehensive metabolic panel (03/19/2025 3:57 [...] AST 49 10 - 50 Units/L [facility] Blood 03/19/2025 3:57 PM CDT 03/19/2025 9:42 PM CDT Raiza Vidal RING CONDUCTOR LAB BLOOD ORDERABLES Final Re sult Performing Organization Address [facility]/ZIP Co de Phone Number KAROL MURO [address] Department [place] [address] * CT Abdomen Pelvis WO Contrast (02/07/2022) Anatomical Region Laterality Modality Body N/A Computed Tomogra phy Wild Lemus MD IMG CT PROCEDURES Final R esult * Hepatitis panel, acute (01/23/2022 4:20 PM CDT) Hep A IgM Nonreactive Nonreactive [facility] Comment: Interpretive Data: If Hep A IgM Ab is reported as Equivocal, a new sample should be drawn in two weeks for testing. Current interpretive data was last revised on 20. Hep B core IgM Nonreactive Nonreactive KAROL Comment: Interpretive Data If HepB Core IgM Ab is reported as Equivocal, a new sample should be drawn in two weeks for testing. Current interpretive data was last revised on 20. Hep C Ab Nonreactive Nonreactive KAROL Comment: Interpretive Data Nonreactive: Antibodies to HCV [...] last revised on 2020. HepBsAg Nonreactive Nonreactive [facility] Blood 01/23/2022 4:20 PM CDT 01/23/2022 6:35 PM CDT Wild Lemus MD LAB MICROBIOLOGY - GENERA L ORDERABLES Final Result KAROL [address] Department [place] [address] * HM COLONOSCOPY (06/01/2019) Historical Provider HEALTH MAINTENANCE Edited Result - Final from Last 3 Months or Most Recently Relevant to Health Maintenance Insurance [employer] [place] [employer] [employer]ESS Care Teams Can Reforming Machine Operator Relationship Specialty Start Date End Date Raiza Vidal NP [address] [place] [address] PCP - General Internal Medicine 03/19/25
[2025-06-14] MEDS: LACTATED RINGERS 1,000 ML 30 ML IV CONT (06:44)
[2025-06-14] MEDS: ACETAMINOPHEN 500 MG TABLET 1000 MG PO (06:44)
[2025-06-14] MEDS: KETOROLAC 15 MG/ML VIAL (*BKC) IV PUSH (06:45)
--- NOTE | 2025-06-14 07:13 | P.HP_ITS ---
H&P: HPI History of Present Illness Date/Time: 06/14/25 07:13 Chief Complaint: ventral hernia Narrative: The patient is a 64-year-old male presenting to the office with a ventral hernia. Patient reports hernias been present for quite a while and has enlarged in size. The patient reports that the hernia has become somewhat symptomatic noting pressure, discomfort with exertion, straining. Workup, including im aging, is significant for a ventral hernia in the supraumbilical midline. The patient also has a small umbilical hernia. Review of Systems Review of Systems: All systems reviewed & are unremarkable except as noted in HPI and below PMFSH Past Medical History Medical History Chronic pain syndrome Alcohol abuse Psychophysiological insomnia Pain of right heel TATIANNA (generalized anxiety disorder) Essential (primary) hypertension Elevated BP without diagnosis of hypertension Dietary counseling and surveillance (06/10/19) Colon cancer screening Chronic pain due to injury Chronic GERD Abdominal wall mass Abdominal pain in male Obesity Epigastric hernia Rectal bleeding LLQ abdominal pain Postprandial abdominal bloating Chronic pain syndrome Pinworm infection Allergic sinusitis Shingles Diabetes type 2, controlled Back pain Arthritis Fibromyalgia GERD (gastroesophageal reflux disease) IBS (irritable bowel syndrome) Gastric ulcer Hernia of abdominal wall Pneumonia COPD (chronic obstructive pulmonary disease) History of angina Peripheral neuropathy Surgical History Surgical History S/P total hip arthroplasty Right hip Hx of shoulder surgery lt shoulder Family History Family History Father Family history of Parkinson's disease Melanoma Nasal polyps Hypertension Hypercholesteremia Mother Osteoporosis Hypertension Hypercholesteremia Acute myocardial infarction Heart disease Other Lung cancer maternal uncle Diabetes mellitus type I, maternal uncle Stomach cancer paternal uncle Brain cancer paternal uncle Grandparent No problems noted. Social History Social History Social History: The patient is and lives with his . He has 2 ch ildren. He is a former smoker. 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 The patient desires to have his is the durable power personal injury attorney for healthcare. Code status full code Smoking packs per day: 2 Smoking cigarettes per day: 40.0 Years smoked: 40 Smoking pack-years: 80.00 Smoking status: Former smoker Tobacco type: cigarettes Second hand tobacco smoke exposure: No Smoking end date: 10/28/11 Alcohol intake: former Drinks per week: 14 Alcohol use details: 2 per month Substance use: never Substance use type: painkillers Do You Feel Safe in your Home?: Yes Lack of Transportation: No Lack of Food: Never True Current Housing: I Have Housing Concerned About Future Housing: No Difficulty Paying Gas/Electric Bills: No Difficulty Paying for Meds: No Currently Unemployed: No Education: High School Diploma/GED Difficulty w/ Childcare or Family Care: No Living arrangements: with family Additional living arrangements comments: Occupation/Education: retired Additional occupation/education comments: Self employed/[employer] Gender identity (if verbalized by the patient): Male Sexual Orientation (if Verbalized by the Patient): Straight or Heterosexual Spiritual care concerns: No Meds Home Medications and Allergies Home Medications ?Medication ?Instructions ?Recorded ?Confirmed ?Type escitalopram oxalate 20 mg tablet 20 mg PO HS 10/02/22 06/03/25 History esomeprazole magnesium 40 mg 40 mg PO BID 10/02/22 06/03/25 History capsule,delayed release gabapentin 100 mg capsule 200 mg PO BID 10/02/22 06/03/25 History losartan 50 mg-hydrochlorothiazide 1 tablet PO QHS 10/02/22 06/03/25 History 12.5 mg tablet trazodone 50 mg tablet 50 mg PO HS 10/02/22 06/03/25 History fenofibrate micronized 134 mg 134 mg PO DAILY 11/28/23 06/03/25 History capsule albuterol sulfate 90 mcg/actuation 2 puff inhalation PRN PRN Wheezing 07/20/24 06/03/25 History aerosol inhaler aripiprazole 2 mg tablet 2 mg PO DAILY 08/11/24 06/03/25 History azelastine 137 mcg (0.1 %) nasal 137 mcg intranasal Q12H 04/27/25 06/03/25 History spray budesonide 160 mcg-glycopyr 9 2 inh inhalation BID 04/27/25 06/03/25 History mcg-formot 4.8 mcg/actuation HFA inhaler (Breztri Aerosphere) cetirizine 10 mg tablet 10 mg PO DAILY PRN allergy symptoms 04/27/25 06/03/25 History ibuprofen 800 mg tablet 800 mg PO DAILY 04/27/25 06/03/25 History metformin 500 mg tablet 1,000 mg PO DAILY 04/27/25 06/03/25 History tirzepatide 2.5 mg/0.5 mL 2.5 mg subcut WEEKLY 04/27/25 06/03/25 History subcutaneous pen injector (Leon) Testosterone TRIT 1 tablet tablet 2 mg sublingual DAILY #1 tablet 06/03/25 06/03/25 History aspirin 81 mg tablet,delayed 81 mg PO HS 06/03/25 06/03/25 History release (Adult Low Dose Aspirin) multivit,Ca,min-iron 8 mg-folic 1 tablet PO DAILY 06/03/25 06/03/25 History acid 200 mcg-lycopene 600 mcg tablet Allergies Allergy/AdvReac Type Severity Reaction Status Date / Time shrimp Allergy Severe Hives Verified 06/14/25 06:40 ibuprofen (From Motrin) AdvReac Intermediate Migraine Verified 06/14/25 06:40 Vital Signs Vital Signs - 24 hr 06/14/25 06:41 Temperature 36.4 C L Pulse Rate 75 Blood Pressure 152/81 H Pulse Oximetry 96 Oxygen Delivery Room Air Exam Const: General: cooperative, comfortable and no acute distress Resp: Auscultation: clear to auscultation bilaterally Cardio: Rate: regular rate Rhythm: regular rhythm GI: Inspection: normal to inspection and non-distended GI Palp: Yes abdominal tenderness, Yes Soft to palpation and Yes Hernia present Other: Supraumbilical ventral hernia, incarcerated measuring approximately 4 cm, small umbilical defect measuring 2 cm reducible Assessment and Plan Assessment and plan (1) Ventral hernia: Qualifiers: Obstruction and gangrene presence: without obstruction or gangrene Qualified Code(s): K43.9 - Ventral hernia without obstruction or gangrene Code(s): K43.9 - Ventral hernia without obstruction or gangrene Status: Acute Assessment and Plan: set up for robotic assisted repair with mesh
--- NOTE | 2025-06-14 07:18 | WPDHPUPDATE1 ---
History and Physical Update Update Date/Time: 06/14/25 07:18 History and Physical has been reviewed, including an updated exam of the patient. There are NO changes in the patient's condition. Risks, benefits, and alternatives have been discussed and questions answered. Patient agrees to proceed with procedure.
--- NOTE | 2025-06-14 07:22 | WPDANESEPPF ---
Anes - Initial Pre Proc Eval Procedure: Operation Date: 06/14/25 07:30 Proposed Procedures p Robotic Assisted Ventral and Umbilical Hernia Repair with Mesh - Yulia Reyes MD Date/Time: 06/14/25 07:22 Surgeon: Yulia Reyes MD Pre Op Diagnosis: Umb Hernia, Ventral Hernia Patient Data Age: 64 Gender: M Height: 1.7 m Weight: 97.25 kg Last Vital Signs Temp 97.5 F L 06/14/25 06:41 Pulse 75 06/14/25 06:41 BP 152/81 H 06/14/25 06:41 Pulse Ox 96 06/14/25 06:41 O2 Del Method Room Air 06/14/25 06:41 Allergies Allergy/AdvReac Type Severity Reaction Status Date / Time shrimp Allergy Severe Hives Verified 06/14/25 06:40 ibuprofen (From Motrin) AdvReac Intermediate Migraine Verified 06/14/25 06:40 Home Medications ?Medication ?Instructions ?Recorded ?Confirmed ?Type escitalopram oxalate 20 mg tablet 20 mg PO HS 10/02/22 06/03/25 History esomeprazole magnesium 40 mg 40 mg PO BID 10/02/22 06/03/25 History capsule,delayed release gabapentin 100 mg capsule 200 mg PO BID 10/02/22 06/03/25 History losartan 50 mg-hydrochlorothiazide 1 tablet PO QHS 10/02/22 06/03/25 History 12.5 mg tablet trazodone 50 mg tablet 50 mg PO HS 10/02/22 06/03/25 History fenofibrate micronized 134 mg 134 mg PO DAILY 11/28/23 06/03/25 History capsule albuterol sulfate 90 mcg/actuation 2 puff inhalation PRN PRN Wheezing 07/20/24 06/03/25 History aerosol inhaler aripiprazole 2 mg tablet 2 mg PO DAILY 08/11/24 06/03/25 History azelastine 137 mcg (0.1 %) nasal 137 mcg intranasal Q12H 04/27/25 06/03/25 History spray budesonide 160 mcg-glycopyr 9 2 inh inhalation BID 04/27/25 06/03/25 History mcg-formot 4.8 mcg/actuation HFA inhaler (Breztri Aerosphere) cetirizine 10 mg tablet 10 mg PO DAILY PRN allergy symptoms 04/27/25 06/03/25 History ibuprofen 800 mg tablet 800 mg PO DAILY 04/27/25 06/03/25 History metformin 500 mg tablet 1,000 mg PO DAILY 04/27/25 06/03/25 History tirzepatide 2.5 mg/0.5 mL 2.5 mg subcut WEEKLY 04/27/25 06/03/25 History subcutaneous pen injector (Mounjaro) Testosterone TRIT 1 tablet tablet 2 mg sublingual DAILY #1 tablet 06/03/25 06/03/25 History aspirin 81 mg tablet,delayed 81 mg PO HS 06/03/25 06/03/25 History release (Adult Low Dose Aspirin) multivit,Ca,min-iron 8 mg-folic 1 tablet PO DAILY 06/03/25 06/03/25 History acid 200 mcg-lycopene 600 mcg tablet Laboratory Tests 06/14/25 06:30 POC Capillary Glucose 114 H mg/dl (65-105) Patient hx anesthesia problems: none Family hx anesthesia problems: none Results Review: All pre-operative results and documents have been reviewed as part of the pre-operative evaluation. [facility] Past Medical History Medical History Chronic pain syndrome Alcohol abuse Psychophysiological insomnia Pain of right heel TATIANNA (generalized anxiety disorder) Essential (primary) hypertension Elevated BP without diagnosis of hypertension Dietary counseling and surveillance (06/10/19) Colon cancer screening Chronic pain due to injury Chronic GERD Abdominal wall mass Abdominal pain in male Obesity Epigastric hernia Rectal bleeding LLQ abdominal pain Postprandial abdominal bloating Chronic pain syndrome Pinworm infection Allergic sinusitis Shingles Diabetes type 2, controlled Back pain Arthritis Fibromyalgia GERD (gastroesophageal reflux disease) IBS (irritable bowel syndrome) Gastric ulcer Hernia of abdominal wall Pneumonia COPD (chronic obstructive pulmonary disease) History of angina Peripheral neuropathy Surgical History Surgical History S/P total hip arthroplasty Right hip Hx of shoulder surgery lt shoulder Family History Family History Father Family history of Parkinson's disease Melanoma Nasal polyps Hypertension Hypercholesteremia Mother Osteoporosis Hypertension Hypercholesteremia Acute myocardial infarction Heart disease Other Lung cancer maternal uncle Diabetes mellitus type I, maternal uncle Stomach cancer paternal uncle Brain cancer paternal uncle Grandparent No problems noted. Social History Social History Social History: The patient is and lives with his . He has 2 children. He is a former smoker. 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 The patient desires to have his is the durable power insurance defense attorney for healthcare. Code status full code Smoking packs per day: 2 Smoking cigarettes per day: 40.0 Years smoked: 40 Smoking pack-years: 80.00 Smoking status: Former smoker Tobacco type: cigarettes Second hand tobacco smoke exposure: No Smoking end date: 10/28/11 Alcohol intake: former Drinks per week: 14 Alcohol use details: 2 per month Substance use: never Substance use type: painkillers Do You Feel Safe in your Home?: Yes Lack of Transportation: No Lack of Food: Never True Current Housing: I Have Housing Concerned About Future Housing: No Difficulty Paying Gas/Electric Bills: No Difficulty Paying for Meds: No Currently Unemployed: No Education: High School Diploma/GED Difficulty w/ Childcare or Family Care: No Living arrangements: with family Additional living arrangements comments: Occupation/Education: retired Additional occupation/education comments: Self employed/[employer] Gender identity (if verbalized by the patient): Male Sexual Orientation (if Verbalized by the Patient): Straight or Heterosexual Spiritual care concerns: No Anes - Eval Final PreProcedure Day of Procedure 06/14/25 07:22 Patient weight: obese Heart: regular rate and rhythm Lungs: clear to auscultation Airway: Mallampati scale class II Neurological: alert and oriented Last oral intake: >/= 8 hours ASA classification: III Emergent: no Anesthetic plan: proceed Anesthesia type and monitoring: general ETT and standard monitoring Results Review: All pre-operative results and documents have been reviewed as part of the pre-operative evaluation. Informed Consent: The patient's anesthetic plan and its attendant risks and benefits were discussed with the patient/family/POA. Questions were solicited and answers provided to the satisfaction of the patient/family/POA.
[2025-06-14] MEDS: ceFAZolin 2 GM in SODIUM CHLORIDE 0.9% IV 50 ML 100 ML IVPB (07:32)
[2025-06-14] MEDS: BUPIVACAINE/EPINEPHRINE 0.5% 30 ML VIAL INFILTRATE (08:05)
--- NOTE | 2025-06-14 09:08 | W.PM.PROC2 ---
Procedure Note - Detailed Date of Procedure 06/14/25 Pre-op Diagnosis incarcerated supraumbilical ventral hernia, umbilical hernia Post-op Diagnosis Same Procedure Performed robotic assisted repair incarcerated supraumbilical ventral hernia measuring 3 cm with mesh, umbilical hernia measuring 1.5 cm Surgeon Yulia Reyes MD Anesthesia General and Local Indications 64-year-old male presenting with a incarcerated supraumbilical ventral hernia worsening over the last few months. Patient also noted to have a small umbilical hernia. Findings Incarcerated supraumbilical ventral hernia with omentum, defect measuring 3 cm after reduction, umbilical hernia with defect measuring 1.5 cm Description of Procedure The patient was taken the operating room placed in the supine position. After adequate induction of general anesthesia, the patient was prepped and draped in normal sterile fashion. A time-out was then done to verify the patient's identity as well as the procedure being performed. I began by making a 8 mm incision in the left upper quadrant. Through this, a Veress needle was placed into the peritoneal cavity and CO2 gas was insufflated. After adequate pneumoperitoneum was achieved, a 8 mm optiview trocar was placed through this incision. I then placed the laparoscope through this trocar site and under direct visualization I placed a 8 mm port in the left mid abdomen as well as an additional 8 mm port in the left lower abdomen. The robot was then docked to the 3 port sites. I then went to the robotic console. I began by identifying the incarcerated supraumbilical ventral hernia. A moderate-sized incarcerated hernia was noted in the supraumbilical region. Using graspers, I was able to reduce this hernia. The hernia was noted to contain a large amount of preperitoneal fat and omentum. I then closed the approximately 3 cm defect with 0 strata fix suture. A 2nd hernia was noted at the umbilicus. This was also reduced and contained preperitoneal fat. The defect was noted to be small measuring approximately 1.5 cm. The 2 defects were quite far apart and given this finding the decision was made to just close the umbilical defect present. This was done with an 0 Stratafix suture. I then placed a 15 x 10 cm symbotex mesh into the abdominal cavity. The Vicryl stitch was placed in the middle of the mesh and brought up centering the mesh over the larger supraumbilical defect. Once this was done, I used 2 0 V lock suture x 2 to circumferentially suture the mesh to the abdominal. Once the mesh was completely sutured in, I was happy with our tension-free repair. The mesh was noted to have good overlap of the defect. At this point, the robot was undocked and all ports were removed. All port sites were then closed with 4 O Monocryl subcuticular suture. The patient tolerated the procedure well, is extubated in the operating room postoperative, and transferred to the recovery room in stable condition. Implants 15x10 cm Symbotex mesh Estimated Blood Loss 10 Drains No Packing No Pathology None sent Complications No immediate complications Condition Stable Disposition PACU [facility] Billing Surgery - Charge Forward: Surgery Billing
[2025-06-14] MEDS: fentaNYL CITRATE INJ (*CRX) 100 MCG/2 ML VIAL 25 MCG IV PUSH ×5 (09:38→09:50)
[2025-06-14] MEDS: HYDROmorphone HCL INJ (*CRX) 1 MG/ML SYR 0.5 MG IV PUSH ×2 (10:01→10:18)
[2025-06-14] MEDS: oxyCODONE HCL (*CRX) 5 MG TAB IR PO (12:14)
== END 2025-06-14 12:43 | disposition home or self-care (01) ==
PROVIDERS: PCP Nurse Practitioner; Visit Provider Surgery
PROC: (CPT 49594; principal; 2025-06-14 07:30)
DX: K43.6 Other and unspecified ventral hernia with obstruction, without gangrene (principal); K42.9 Umbilical hernia without obstruction or gangrene; I10 Essential (primary) hypertension; K21.9 Gastro-esophageal reflux disease without esophagitis; E11.9 Type 2 diabetes mellitus without complications; M79.7 Fibromyalgia; K58.9 Irritable bowel syndrome, unspecified; J44.9 Chronic obstructive pulmonary disease, unspecified; G89.4 Chronic pain syndrome; F51.04 Psychophysiologic insomnia; F41.9 Anxiety disorder, unspecified; M19.90 Unspecified osteoarthritis, unspecified site; G62.9 Polyneuropathy, unspecified; E66.9 Obesity, unspecified; Z68.33 Body mass index [BMI] 33.0-33.9, adult; Z79.51 Long term (current) use of inhaled steroids; Z79.1 Long term (current) use of non-steroidal anti-inflammatories (NSAID); Z79.84 Long term (current) use of oral hypoglycemic drugs; Z79.85 Long-term (current) use of injectable non-insulin antidiabetic drugs; Z79.82 Long term (current) use of aspirin; Z79.899 Other long term (current) drug therapy; Z98.890 Other specified postprocedural states; Z87.891 Personal history of nicotine dependence; Z87.19 Personal history of other diseases of the digestive system; Z80.8 Family history of malignant neoplasm of other organs or systems; Z80.1 Family history of malignant neoplasm of trachea, bronchus and lung; Z80.0 Family history of malignant neoplasm of digestive organs; Z82.49 Family history of ischemic heart disease and other diseases of the circulatory system
CPT/HCPCS: 49594; 82948; J0690; A9270; C1781; J0360; J1100; J1171; J1885; J2003; J2250; J2405; J2704; J3010; J7030; J7120